=== PATIENT | male | born 1955 | race Caucasian/White ===

== ENCOUNTER → 2016-07-04 | Outpatient (CLI) | payer MEDICARE, OTHER ==
[~2016-07-04] MED LIST: /CLON1TA; /WARF25TA OR; /WARF5TA OR; ACTO15TA OR; ACTO30TA OR; ADVAIR INH; BISO10TA PO; BISO10TA2 OR; CARD120C3 PO; COUM10TA OR; CRES5TAB OR; CYMB60CA3 PO; DIAZIDE PO; DYAZ37.5 OR; FISH300C2 OR; Fish Oil OR; GLUC500T OR; LEVA500T PO; LISI-542 PO; METF1000 PO; METF500T4 OR; Morphine IR; NITR0.4S SL; NITR4TASL SL; OXYC1TAB16 PO; OXYC1TAB23 PO; OXYC40TA12 PO; OXYC40TA19 OR; OXYCODONE; PREG100CA OR; PRO-AIR HFA; ROSU10TA PO; SKEL800T5; SKEL800T5 OR; TRIA37.53 PO; XARE20TA PO; ZANA4TAB PO; ZOLO100T OR; ZOLO50TA OR; [UNRECOGNIZED DRUG - CODE] OR; [UNRECOGNIZED DRUG - MIXTURE]; nucynta OR
--- NOTE | 2016-07-04 13:32 | REP ---
LEFT WRIST SERIES: Four views. HISTORY: Left wrist pain after two falls. FINDINGS: Four views of the left wrist demonstrate osteoarthritic spurring mild in degree at the first carpometacarpal articulation. There is a tiny ossicle at the dorsal aspect of the carpus on lateral film. This appears old and well corticated. Bones joints and soft tissues are otherwise unremarkable. No fracture or subluxation is seen. IMPRESSION: No acute bony abnormality. Early osteoarthritis at the first carpometacarpal articulation. Old accessory ossicle dorsally.
== END ==
LOC: M CLY 11:53
PROVIDERS: ATTEND Physician Assistant
DX: M19.032 Primary osteoarthritis, left wrist (principal)
CPT/HCPCS: 73110; G0463

== ENCOUNTER 2016-07-08 11:35 | Emergency (ER) | payer MEDICARE, OTHER ==
[2016-07-08] MEDS ORDERED: BISOPROLOL FUMARATE 5 MG TAB As Ordered ONE (12:09)
[2016-07-08] MEDS ORDERED: METOPROLOL 5 MG/5 ML VIAL As Ordered ONE ×2 (12:13→13:03)
[2016-07-08 12:43] LABS: ANION GAP 12 MEQ/L (8-16); BLOOD UREA NITROGEN 24 MG/DL (7-18); CALCIUM LEVEL 9.9 MG/DL (8.8-10.2); CARBON DIOXIDE LEVEL 27 MEQ/L (21-32); CHLORIDE LEVEL 100 MEQ/L (98-107); CREATININE FOR GFR 1.57 MG/DL (0.70-1.30); FREE T4 1.26 NG/DL (0.76-1.46); GLOMERULAR FILTRATION RATE 47.7 (>49); GLUCOSE, FASTING 201 MG/DL (80-110); POTASSIUM SERUM 3.7 MEQ/L (3.5-5.1); SODIUM LEVEL 139 MEQ/L (136-145)
[2016-07-08 12:52] LABS: MEAN CORPUSCULAR HEMOGLOBIN 31.9 pg (27.0-33.0); MEAN CORPUSCULAR HGB CONC 33.2 g/dl (32.0-36.5); PLATELET COUNT, AUTOMATED 167 k/mm3 (150-450); RED CELL DISTRIBUTION WIDTH 12.6 % (11.5-14.5); WHITE BLOOD COUNT 7.4 K/mm3 (4.0-10.0)
[2016-07-08 14:00] LABS: BANDS 22 % (< 11); EOSINOPHILS 1 % (0-5); POIKILOCYTOSIS 1+
--- NOTE | 2016-07-08 14:13 | REP ---
PORTABLE CHEST X-RAY: AP semi-erect view. HISTORY: Shortness of breath. Comparison chest x-ray is from April 03, 2016. FINDINGS: EKG monitoring electrodes are seen. The lungs are symmetrically aerated and free of infiltrate. The pleural angles are sharp. Heart size is normal. Pulmonary vasculature is not increased. IMPRESSION: No acute disease. Signed by Sung Ding MD 07/08/2016 03:19 P
[2016-07-08] MEDS ORDERED: ACETAMINOPHEN 325 MG TAB As Ordered ONE (15:28)
--- NOTE | 2016-07-08 17:19 | EDDOCDS ---
Nurse's Notes [facility] Name: Saul Crockett Age: 61 yrs Sex: Male : 1955 Arrival Date: 07/08/2016 Time: 11:35 Bed 3 Private MD: Rafael Castro M.D. Diagnosis: Chronic atrial fibrillation-now rate-controlled;Other chest [id number], resolved Presentation: 07/08 11:37 Presenting complaint: EMS states: Chest pressure with SOB starting approx 0830 am. N/V jf3 in between. Call ed EMS approx 1030. EMS states diaphoretic and ashen sotelo in color. A-Fib on monitor. Aspirin was taken [employer]. Suicide/Homicide risk assessment- the patient denies having any suicidal and/or homicidal ideations and does not present with any other emotional, behavioral or mental health complaints. 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 Transition of care: patient was not received from another setting of care. Care prior to arrival: See EMS report. Medications administered prior to arrival: NTG, IV initiated. Saline lock initiated. Glucose check. 181 mg/dl Oxygen administered by EMS. 11:37 Acuity: WARREN Level 2 jf3 11:37 Method Of Arrival: Ambulance jf3 12:00 Adult Sepsis Screening: The patient does not have new or worsening altered mentation. jf3 Patient's respiratory rate is less than 22. Systolic blood pressure is greater than 100. Patient has a qSOFA score of 0- Negative Sepsis Screen. Triage Assessment: 11:40 General: Appears distressed, Behavior is cooperative. Pain: Location: mid-sternal area. jf3 Pain: Pain currently is 5 out of 10 on a pain scale. Pain: Quality of pain is described as pressure. Pt Declines HIV testing. The patient is triaged at the bedside. See Assessment in Nurses Notes section of ED record. Cardiovascular: Chest pain is described as severe, radiates Does not radiate. episodes are intermittent began 0830 today. Respiratory: Airway is patent Respiratory effort is even, unlabored, Respiratory pattern is regular, symmetrical, Reports shortness of breath at rest. Derm: Skin is diaphoretic, Skin is pale. Historical: - Allergies: Augmentin (Upset stomach); Neurontinnightmares; - Home Meds: 1. morphine 30 mg Oral CM24 1 cap twice a day (Last dose: 07/07/2016) 2. Singulair 10 mg Oral tab 1 tab once daily (Last dose: 07/07/2016) 3. Flomax 0.4 mg Oral cp24 1 cap once daily (Last dose: 07/07/2016) 4. prednisone 20 mg Oral tab 2 tabs once daily (Last dose: 07/07/2016) 5. diltiazem HCl 120 mg Oral cpER 1 cap once daily (Last dose: 07/07/2016) 6. Percocet 10-325 mg Oral tab 2 tab twice a day for Pain (Last dose: 07/07/2016) 7. Advair Diskus 250-50 mcg/dose Inhl dsdv 1 puff 2 times per day (Last dose: 07/07/2016) 8. bisoprolol fumarate 10 mg oral tab 1 tab twice a day (Last dose: 07/07/2016) 9. Crestor 10 mg Oral tab 1 tab once daily (Last dose: 07/07/2016) 10. Cymbalta 60 mg Oral cpDR 1 cap once daily (Last dose: 07/07/2016) 11. metformin 1,000 mg Oral tab 1 tab 2 times per day (Last dose: 07/07/2016) 12. Nasonex 50 mcg/actuation Nasal spry 2 sprays once daily (Last dose: 07/07/2016) 13. nitroglycerin 0.4 mg/hr Topical pt24 as needed (Last dose: Unknown) 14. pro air HFA daily (Last dose: 07/07/2016) 15. Xyzal 5 mg oral tab 1 tab once daily (Last dose: 07/07/2016) 16. Zanaflex 4 mg Oral tab 1 tab every 6 hours for Muscle Spasm (Last dose: 07/07/2016) 17. lisinopril 10 mg Oral tab 1 tab once daily (Last dose: 07/07/2016) 18. Fish Oil 300 mg Oral cap daily (Last dose: 07/07/2016) 19. Xarelto 20 mg oral tab 1 tab once daily (Last dose: 07/07/2016) 20. Voltaren Gel 1% Gel 21. lidocaine patch 22. Amitiza 24 mcg oral cap 1 cap 2 times per day (Last dose: 07/07/2016) 23. triamterene-hydrochlorothiazid 37.5-25 mg Oral tab 1 tab once daily (Last dose: 07/08/2016 08:00) - PMHx: "fatty liver:; Atrial Fib; Chronic Back pain; Diabetes - NIDDM: controlled; Hypertension; - PSHx: right knee ortho; lower back surgery; - The history from nurses notes was reviewed: and I agree with what is documented. - Social history: Smoking status: Patient states was never smoker of tobacco. No barriers to communication noted, The patient speaks fluent [place]. - Family history: Not pertinent. - : The pt / caregiver states he / she is on anticoagulants: Xarelto Home medication list is obtained from the patient. - Hospitalizations: : No recent hospitalization is reported. - Exposure Risk Screening:: None identified. - Immunization history:: All immunizations up-to-date. - Social history:: the patient is a non-smoker, the patient does not drink alcohol. Screenin:53 Screening information is obtained from the patient. Fall risk: No risks identified. js13 Assistance ADL's: requires no assistance with activities of daily living. Abuse/DV Screen: The patient / caregiver reports he/she is: not in a situation that causes fear, pain or injury. Nutritional screening: No deficits noted. Advance Directives: There is no active DNR order. home support is adequate. Assessment: 11:53 General: Appears distressed, Behavior is appropriate for age, cooperative. js13 Neurological: Level of Consciousness is awake, alert. Cardiovascular: Rhythm is atrial fibrillation with rapid ventricular response Chest pain is described as Pain is 5 out of 10 on a pain scale. quality is heaviness, pressure, radiates back Chest pain began 0830 this morning. Respiratory: Airway is patent Respiratory effort is even, unlabored, Respiratory pattern is regular, Breath sounds are diminished. GI: Abdomen is obese, Bowel sounds present X 4 quads. Abd is soft and non tender. Derm: Skin is intact, Skin is diaphoretic, Skin is pink, Skin temperature is warm. 13:10 General: Appears in no apparent distress, Behavior is appropriate for age, cooperative. js13 Pain: Denies pain. Neurological: Level of Consciousness is awake, alert. Cardiovascular: Rhythm is atrial fibrillation with rapid ventricular response Chest pain is denied. Respiratory: Airway is patent Respiratory effort is even, unlabored, Respiratory pattern is regular. Derm: Skin is moist, Skin is pink, Skin temperature is warm. 13:36 General: Appears in no apparent distress, Behavior is appropriate for age, cooperative. js13 Pain: Denies pain. Neurological: Level of Consciousness is awake, alert. Cardiovascular: Rhythm is atrial fibrillation Chest pain is denied. Respiratory: Airway is patent Respiratory effort is even, unlabored, Respiratory pattern is regular. Derm: Skin is pink, warm & dry. 14:42 Adult Sepsis Screening: The patient does not have new or worsening altered mentation. js13 Patient's respiratory rate is less than 22. Systolic blood pressure is greater than 100. Patient has a qSOFA score of 0- Negative Sepsis Screen. General: Appears in no apparent distress, comfortable, Behavior is appropriate for age, cooperative. Pain: Denies pain. Neurological: Level of Consciousness is awake, alert. Cardiovascular: Rhythm is atrial fibrillation Chest pain is denied. Respiratory: Airway is patent Respiratory effort is even, unlabored, Respiratory pattern is regular. Derm: Skin is pink, warm & dry. 15:19 General: Appears in no apparent distress, comfortable, Behavior is appropriate for age, js13 cooperative. Pain: Location: head Pain currently is 3 out of 10 on a pain scale. Quality of pain is described as aching. Neurological: Level of Consciousness is awake, alert. Cardiovascular: Rhythm is atrial fibrillation Chest pain is denied. Respiratory: Airway is patent Respiratory effort is even, unlabored, Respiratory pattern is regular, symmetrical. Derm: Skin is pink, warm & dry. 16:00 Adult Sepsis Screening: The patient does not have new or worsening altered mentation. js13 Patient's respiratory rate is less than 22. Systolic blood pressure is greater than 100. Patient has a qSOFA score of 0- Negative Sepsis Screen. General: Appears in no apparent distress, comfortable, Behavior is appropriate for age, cooperative. Neurological: Level of Consciousness is awake, alert. Cardiovascular: Rhythm is atrial fibrillation Chest pain is denied. Respiratory: Airway is patent Respiratory effort is even, unlabored, Respiratory pattern is regular, symmetrical. Derm: Skin is pink, warm & dry. 16:25 General: Appears in no apparent distress, Behavior is appropriate for age, cooperative. js13 Pain: Location: head Pain currently is 4 out of 10 on a pain scale. Neurological: Level of Consciousness is awake, alert. Cardiovascular: Rhythm is atrial fibrillation Chest pain is denied. Respiratory: Airway is patent Respiratory effort is even, unlabored, Respiratory pattern is regular, symmetrical. Derm: Skin is pink, warm & dry. 16:47 General: Appears in no apparent distress, Behavior is appropriate for age, cooperative. js13 Pain: Pain currently is 4 out of 10 on a pain scale. Neurological: Level of Consciousness is awake, alert. Cardiovascular: Rhythm is atrial fibrillation Chest pain is denied. Respiratory: Airway is patent Respiratory effort is even, unlabored, Respiratory pattern is regular, symmetrical. Derm: Skin is pink, warm & dry. Vital Signs: 11:40 BP 136 / 76; Pulse 145; Resp 24; Temp 100.6(O); Pulse Ox 98% on 4 lpm NC; Weight 121.4 jf3 kg (M); Height 6 ft. 0 in. (182.88 cm); Pain 5/10; 11:51 BP 125 / 84 (auto/); js13 11:51 Pulse 152 MON; Resp 18; Pulse Ox 99% on 4 lpm NC; js13 11:53 BP 169 / 85 (auto/); js13 11:53 Pulse 153 MON; Resp 18; Pulse Ox 99% on 4 lpm NC; js13 12:00 BP 138 / 82 (auto/); js13 12:00 Pulse 146 MON; Resp 16; Pulse Ox 97% on 4 lpm NC; js13 12:07 BP 157 / 91 (auto/); js13 12:07 Pulse 149 MON; Resp 16; Pulse Ox 98% on 4 lpm NC; js13 12:20 BP 154 / 76 (auto/); js13 12:20 Pulse 134 MON; Resp 18; Pulse Ox 98% on 4 lpm NC; js13 12:20 BP 154 / 76; Pulse 134; js13 12:25 BP 142 / 73 (auto/); js13 12:25 Pulse 133 MON; Resp 18; Pulse Ox 98% on 4 lpm NC; js13 12:26 BP 142 / 73; Pulse 149; js13 12:30 BP 141 / 78 (auto/); js13 12:30 Pulse 131 MON; Resp 18; Pulse Ox 98% on 4 lpm NC; js13 12:30 BP 141 / 78; Pulse 126; js13 12:35 BP 118 / 74 (auto/); js13 12:35 Pulse 128 MON; Resp 18; Pulse Ox 99% on 4 lpm NC; js13 12:40 BP 138 / 76 (auto/); js13 12:40 Pulse 129 MON; Resp 16; Pulse Ox 97% on 4 lpm NC; js13 12:43 Temp 98.4(O); js13 12:45 BP 140 / 85 (auto/); js13 12:46 Pulse 136 MON; Resp 16; Pulse Ox 95% on 4 lpm NC; js13 12:50 BP 146 / 81 (auto/); js13 12:50 Pulse 129 MON; Resp 16; Pulse Ox 97% on 4 lpm NC; js13 12:55 BP 147 / 88 (auto/); js13 12:55 Pulse 129 MON; Resp 16; Pulse Ox 97% on 4 lpm NC; js13 13:00 BP 148 / 92 (auto/); js13 13:00 Pulse 128 MON; Resp 16; Pulse Ox 97% on 4 lpm NC; js13 13:05 BP 130 / 70 (auto/); js13 13:05 Pulse 126 MON; Resp 16; Pulse Ox 97% on 4 lpm NC; js13 13:10 BP 124 / 74 (auto/); js13 13:10 Pulse 127 MON; Resp 16; Pulse Ox 98% on 4 lpm NC; js13 13:10 BP 124 / 74; Pulse 124; js13 13:15 BP 116 / 76 (auto/); js13 13:15 Pulse 121 MON; Resp 16; Pulse Ox 96% on 4 lpm NC; js13 13:15 BP 116 / 76; Pulse 114; js13 13:20 BP 121 / 72 (auto/); js13 13:20 Pulse 120 MON; Resp 16; Pulse Ox 96% on 4 lpm NC; js13 13:20 BP 121 / 72; Pulse 121; js13 13:25 BP 127 / 79 (auto/); js13 13:25 Pulse 114 MON; Resp 18; Pulse Ox 96% on 4 lpm NC; js13 13:30 BP 127 / 64 (auto/); js13 13:30 Pulse 111 MON; Resp 16; Pulse Ox 97% on 4 lpm NC; js13 13:35 BP 138 / 83 (auto/); js13 13:35 Pulse 101 MON; Resp 16; Pulse Ox 97% on 4 lpm NC; js13 13:40 BP 143 / 64 (auto/); js13 13:40 Pulse 98 MON; Resp 16; Pulse Ox 97% on 4 lpm NC; js13 13:45 BP 143 / 65 (auto/); js13 13:45 Pulse 98 MON; Resp 16; Pulse Ox 97% on 4 lpm NC; js13 13:50 BP 130 / 72 (auto/); js13 13:50 Pulse 99 MON; Resp 18; Pulse Ox 99% on 4 lpm NC; js13 13:55 BP 125 / 71 (auto/); js13 13:55 Pulse 92 MON; Resp 16; Pulse Ox 97% on 4 lpm NC; js13 14:00 BP 125 / 72 (auto/); js13 14:00 Pulse 95 MON; Resp 16; Pulse Ox 97% on 4 lpm NC; js13 14:05 BP 116 / 65 (auto/); js13 14:05 Pulse 94 MON; Resp 18; Pulse Ox 97% on 4 lpm NC; js13 14:10 BP 124 / 62 (auto/); js13 14:10 Pulse 91 MON; Resp 18; Pulse Ox 97% on 4 lpm NC; js13 14:15 BP 110 / 56 (auto/); js13 14:15 Pulse 87 MON; Resp 18; Pulse Ox 98% on 4 lpm NC; js13 14:20 BP 120 / 72 (auto/); js13 14:20 Pulse 84 MON; Resp 16; Pulse Ox 97% on 4 lpm NC; js13 14:25 BP 123 / 76 (auto/); js13 14:25 Pulse 81 MON; Resp 16; Pulse Ox 98% on 4 lpm NC; js13 14:30 BP 100 / 51 (auto/); js13 14:30 Pulse 80 MON; Resp 16; Pulse Ox 97% on 4 lpm NC; js13 14:35 BP 123 / 77 (auto/); js13 14:35 Pulse 77 MON; Resp 16; Pulse Ox 97% on 4 lpm NC; js13 14:40 BP 98 / 46 (auto/); js13 14:40 Pulse 75 MON; Resp 16; Pulse Ox 97% on 4 lpm NC; js13 14:45 BP 102 / 56 (auto/); js13 14:45 Pulse 76 MON; Resp 16; Pulse Ox 98% on 4 lpm NC; js13 14:50 BP 104 / 56 (auto/); js13 14:50 Pulse 75 MON; Resp 18; Pulse Ox 97% on 4 lpm NC; js13 14:55 BP 119 / 73 (auto/); js13 14:55 Pulse 78 MON; Resp 18; Pulse Ox 98% on 4 lpm NC; js13 15:00 BP 107 / 58 (auto/); js13 15:00 Pulse 75 MON; Resp 16; Pulse Ox 98% on 4 lpm NC; js13 15:05 BP 106 / 50 (auto/); js13 15:05 Pulse 74 MON; Resp 18; Pulse Ox 97% on 4 lpm NC; js13 15:10 BP 93 / 52 (auto/); js13 15:10 Pulse 74 MON; Resp 16; Pulse Ox 100% on 4 lpm NC; js13 15:15 BP 87 / 50 (auto/); js13 15:15 Pulse 72 MON; Resp 16; Pulse Ox 98% on 4 lpm NC; js13 15:20 BP 130 / 87 (auto/); lf1 15:20 Pulse 78 MON; Resp 16; Pulse Ox 98% on 4 lpm NC; lf1 15:25 BP 101 / 70 (auto/); js13 15:25 Pulse 78 MON; Resp 16; Pulse Ox 100% on 4 lpm NC; js13 15:30 BP 111 / 54 (auto/); js13 15:30 Pulse 74 MON; Resp 16; Pulse Ox 98% on 4 lpm NC; js13 15:35 BP 107 / 59 (auto/); js13 15:35 Pulse 70 MON; Resp 18; Pulse Ox 99% on 4 lpm NC; js13 15:40 BP 106 / 60 (auto/); js13 15:40 Pulse 74 MON; Resp 18; Pulse Ox 98% on 4 lpm NC; js13 15:45 BP 102 / 54 (auto/); js13 15:45 Pulse 72 MON; Resp 16; Pulse Ox 98% on 4 lpm NC; js13 15:50 BP 104 / 56 (auto/); js13 15:50 Pulse 73 MON; Resp 16; Pulse Ox 98% on 4 lpm NC; js13 15:55 BP 106 / 57 (auto/); js13 15:55 Pulse 69 MON; Resp 16; Pulse Ox 97% on 4 lpm NC; js13 16:05 BP 128 / 74 (auto/); js13 16:05 Pulse 71 MON; Resp 16; Pulse Ox 100% on 4 lpm NC; js13 16:15 BP 114 / 70 (auto/); js13 16:15 Pulse 72 MON; Resp 16; Pulse Ox 98% on 4 lpm NC; js13 16:30 BP 126 / 81 (auto/); js13 16:30 Pulse 71 MON; Resp 16; Temp 98.7(O); Pulse Ox 98% on 4 lpm NC; js13 16:45 Pulse 71 MON; Pulse Ox 99% ; js13 16:45 BP 141 / 80 (auto/); js13 16:50 Pain 4/10; js13 17:00 BP 139 / 88 (auto/); js13 17:00 Pulse 76 MON; Resp 16; Pulse Ox 97% on R/A; js13 11:40 Body Mass Index 36.30 (121.40 kg, 182.88 cm) 3 Vitals: 11:40 Log In Time N/A - ambulance arrival. 3 ED Course: 11:36 Patient visited by Ria Franco PCA. jlf 11:36 Rafael Castro is Private Physician. [facility] 11:36 Patient moved to Waiting [facility] 11:36 Patient moved to 3 [facility] 11:40 Triage Initiated 3 11:53 The patient / caregiver is instructed regarding the plan of care and ED course. 13 11:53 EKG done. (by ED staff). Reviewed by Serjio Dumas MD. ct3 11:53 Inserted saline lock: 18 gauge in left antecubital area and blood collected. The js13 patient tolerated the procedure well. 11:54 Patient visited by Rajwinder Thao PCA. ct3 11:54 Patient has correct armband on for positive identification. Placed in gown. Call light ct3 in reach. Side rails up X2. quality assurance monitor chassis on. Pulse ox on. NIBP on. 11:56 Patient visited by Yasmin Sood RN. js13 11:56 Inserted saline lock: 16 gauge in right antecubital area The patient tolerated the js13 procedure well. 11:56 Maintain field IV. Dressing intact. Good blood return noted. Site clean & dry. Gauge & js13 site: 20 gauge in right forearm . No procedures done that require assistance. Labs drawn. (by ED staff). Sent per order to lab. Labs/Blood culture drawn. O2 via nasal cannula \\T\\ 4L/min. 11:59 Serjio Dumas MD is Attending Physician. pc 12:05 Patient visited by Serjio Dumas MD. pc 12:12 -Blood Culture Sent. js13 12:12 TSH with Free T4 Sent. js13 12:12 B-Type Natiuretic Peptide Sent. js13 12:12 Basic Metabolic Profile Sent. js13 12:12 CBC with Diff Sent. js13 12:12 Cardiac Injury Profile Sent. js13 12:12 Troponin Sent. js13 12:22 -Influenza A&B Rapid Antigen - Nose Sent. js13 12:41 Patient visited by Rajwinder Thao PCA. ct3 13:00 DIFFERENTIAL NO CHARGE Sent. js13 13:13 [facility] Payment Agreement was scanned into [employer] and attached to record. jp5 13:21 Patient visited by Yasmin Sood RN. js13 13:37 Patient visited by Yasmin Sood RN. js13 13:37 Yasmin Sood RN is Primary Nurse. js13 14:16 portable chest Returned. EDMS 14:33 Patient visited by Rajwinder Thao PCA. ct3 14:33 EKG done. (by ED staff). Reviewed by Serjio Dumas MD. ct3 14:41 CARDIAC MARKER PANEL Sent. js13 14:43 Patient visited by Yasmin Sood,AMNA. js13 15:21 Patient visited by Yasmin Sood,AMNA. js13 15:36 portable chest Returned. EDMS 16:01 Patient visited by Yasmin Sood RN. js13 16:26 Patient visited by Yasmin Sood,AMNA. js13 16:42 Thea Flynn is Referral Physician. pc 17:17 Discontinued IV lock intact, bleeding controlled, pressure dressing applied, No js13 redness/swelling at site. coban dressings applied to all 3 IV sites with 2 X 2 gauze. Administered Medications: 12:12 Drug: Bisoprolol 10 mg [bisoprolol fumarate 5 mg tablet (2 tabs)] Route: PO; js13 12:15 Drug: Metoprolol 5 mg [metoprolol 5 mg/5 mL intravenous solution (5 mL)] Route: IVP; js13 Site: left antecubital; 12:20 Drug: Metoprolol 5 mg [metoprolol 5 mg/5 mL intravenous solution (5 mL)] Route: IVP; js13 Site: left antecubital; 12:20 Follow up: BP 154 / 76; Pulse 134 bpm; Response: Cardiac Rhythm is unchanged; HR not js13 changed 12:25 Drug: Metoprolol 5 mg [metoprolol 5 mg/5 mL intravenous solution (5 mL)] Route: IVP; js13 Site: left antecubital; 12:26 Follow up: BP 142 / 73; Pulse 149 bpm; HR unchanged js13 12:30 Follow up: BP 141 / 78; Pulse 126 bpm; Response: No significant change. js13 12:41 Drug: Cardizem - Diltiazem 120 mg [diltiazem 30 mg tablet (4 tabs)] Route: PO; js13 14:41 Follow up: Response: HR decreased to under 100 js13 13:05 Drug: Metoprolol 5 mg [metoprolol 5 mg/5 mL intravenous solution (5 mL)] Route: IVP; js13 Site: left antecubital; 13:10 Drug: Metoprolol 5 mg [metoprolol 5 mg/5 mL intravenous solution (5 mL)] Route: IVP; js13 Site: left antecubital; 13:10 Follow up: BP 124 / 74; Pulse 124 bpm; Response: No significant change. js13 13:15 Drug: Metoprolol 5 mg [metoprolol 5 mg/5 mL intravenous solution (5 mL)] Route: IVP; js13 Site: left antecubital; 13:15 Follow up: BP 116 / 76; Pulse 114 bpm; Response: HR decreased 114 BPM js13 13:20 Follow up: BP 121 / 72; Pulse 121 bpm; Response: No significant change. js13 15:32 Drug: Acetaminophen 650 mg [acetaminophen 325 mg tablet (2 tabs)] Route: PO; lf1 16:50 Follow up: Pain 4/10 Adult; Response: Pain is decreased js13 Intake: Order Results: Lab Order: B-Type Natiuretic Peptide; SPEC'M 07/08/16 11:40 Test: BRAIN NATRIURETIC PEPTIDE; Value: 173; Range: <100; Abnormal: Above high normal; Units: PG/ML; Status: F Lab Order: Basic Metabolic Profile; SPEC'M 07/08/16 11:40 Test: GLUCOSE, FASTING; Value: 201; Range: 80-110; Abnormal: Above high normal; Units: MG/DL; Status: F Test: BLOOD UREA NITROGEN; Value: 24; Range: 7-18; Abnormal: Above high normal; Units: MG/DL; Status: F Test: CREATININE FOR GFR; Value: 1.57; Range: 0.70-1.30; Abnormal: Above high normal; Units: MG/DL; Status: F Test: GLOMERULAR FILTRATION RATE; Value: 47.7; Range: >49; Abnormal: Below low normal; Status: F Test: SODIUM LEVEL; Value: 139; Range: 136-145; Units: MEQ/L; Status: F Test: POTASSIUM SERUM; Value: 3.7; Range: 3.5-5.1; Units: MEQ/L; Status: F Test: CHLORIDE LEVEL; Value: 100; Range: 98-107; Units: MEQ/L; Status: F Test: CARBON DIOXIDE LEVEL; Value: 27; Range: 21-32; Units: MEQ/L; Status: F Test: ANION GAP; Value: 12; Range: 8-16; Units: MEQ/L; Status: F Test: CALCIUM LEVEL; Value: 9.9; Range: 8.8-10.2; Units: MG/DL; Status: F Test Note: ; Units are mL/min/1.73 m2 Chronic Kidney Disease Staging per NKF: Stage I & II GFR >=60 Normal to Mildly Decreased Stage III GFR 30-59 Moderately Decreased Stage IV GFR 15-29 Severely Decreased Stage V GFR <15 Very Little GFR Left ESRD GFR <15 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 Lab Order: CBC with Diff; SPEC'M 07/08/16 11:40 Test: WHITE BLOOD COUNT; Value: 7.4; Range: 4.0-10.0; Units: K/mm3; Status: F Test: RED BLOOD COUNT; Value: 4.69; Range: 4.30-6.10; Units: M/mm3; Status: F Test: HEMOGLOBIN; Value: 15.0; Range: 14.0-18.0; Units: g/dl; Status: F Test: HEMATOCRIT; Value: 45.1; Range: 42.0-52.0; Units: %; Status: F Test: MEAN CORPUSCULAR VOLUME; Value: 96.0; Range: 80.0-96.0; Units: fl; Status: F Test: MEAN CORPUSCULAR HEMOGLOBIN; Value: 31.9; Range: 27.0-33.0; Units: pg; Status: F Test: MEAN CORPUSCULAR HGB CONC; Value: 33.2; Range: 32.0-36.5; Units: g/dl; Status: F Test: RED CELL DISTRIBUTION WIDTH; Value: 12.6; Range: 11.5-14.5; Units: %; Status: F Test: PLATELET COUNT, AUTOMATED; Value: 167; Range: 150-450; Units: k/mm3; Status: F Test: NEUTROPHILS; Value: 72; Range: 35-75; Units: %; Status: F Test: BANDS; Value: 22; Range: < 11; Abnormal: Above high normal; Units: %; Status: F Test: LYMPHOCYTES; Value: 3; Range: 16-52; Abnormal: Below low normal; Units: %; Status: F Test: MONOCYTES; Value: 2; Range: 0-8; Units: %; Status: F Test: EOSINOPHILS; Value: 1; Range: 0-5; Units: %; Status: F Test: POIKILOCYTOSIS; Value: 1+; Status: F Lab Order: Cardiac Injury Profile; [facility]' 07/08/16 11:40 Test: CPK CREATINE PHOSPHOKINASE; Value: 31; Range: 39-308; Abnormal: Below low normal; Units: U/L; Status: F Test: CK-MB VALUE MASS; Value: 1.0; Range: 0.0-3.6; Units: NG/ML; Status: F Test: MB/CK RELATIVE INDEX; Value: 3.22; Range: < OR =4; Status: F Test Note: ; DIAGNOSIS CRITERIA MMB ng/ml Relative Index (RI) NON-AMI < or = 5 N/A SOTELO ZONE > 5 < or = 4 AMI > 5 > 4 Lab Order: Troponin; SPEC'M 07/08/16 11:40 Test: TROPONIN I; Value: < 0.02; Range: < 0.10; Units: NG/ML; Status: F Test Note: ; Troponin I Reference Interval for Siemens MVB Bank, LOCI: 99th Percentile= 0.00-0.045 ng/ml Risk Stratification: <= 0.10 ng/ml Decreased Risk for Adverse Clinical Events. 0.10-1.50 ng/ml Increased Risk for Adverse Clinical Events. Evaluation of additional criterion and/or repeat testing in 2-6 hours is suggested to rule out myocardial damage. >= 1.50 ng/ml Indicative of Myocardial Injury. Lab Order: TSH with Free T4; SPEC'M 07/08/16 11:40 Test: THYROID STIMULATING HORMONE; Value: 1.680; Range: 0.358-3.740; Units: uIU/ML; Status: F Test: FREE T4; Value: 1.26; Range: 0.76-1.46; Units: NG/DL; Status: F Lab Order: -Influenza A&B Rapid Antigen - Nose; SPEC'M 07/08/16 12:15 Test: INFLUENZA A RAPID SCR by ICA; Value: INFLUENZA A RESULTS NEGATIVE; Status: F Test: INFLUENZA A RAPID SCR by ICA; Value: Comments:; Status: F Test: INFLUENZA B RAPID SCR by ICA; Value: INFLUENZA B RESULTS NEGATIVE; Status: F Test Note: ; The Influenza test is a direct rapid immunoassay for the qualitative detection of Influenza viral antigen. Cell culture (Viral Culture) testing should be considered to confirm NEGATIVE results and to assist in detecting other viruses that can provide similar clinical symptoms. Please contact the lab within 24 hours ([phone] if confirmatory testing is desired. Lab Order: PLATELET ESTIMATE; SPEC'M 07/08/16 11:40 Test: PLATELET ESTIMATE; Value: NORMAL; Range: NORMAL; Status: F Lab Order: CARDIAC MARKER PANEL; SPEC'M 07/08/16 14:38 Test: CPK CREATINE PHOSPHOKINASE; Value: 35; Range: 39-308; Abnormal: Below low normal; Units: U/L; Status: F Test: CK-MB VALUE MASS; Value: 1.0; Range: 0.0-3.6; Units: NG/ML; Status: F Test: MB/CK RELATIVE INDEX; Value: 2.85; Range: < OR =4; Status: F Test: TROPONIN I; Value: < 0.02; Range: < 0.10; Units: NG/ML; Status: F Test Note: ; DIAGNOSIS CRITERIA MMB ng/ml Relative Index (RI) NON-AMI < or = 5 N/A SOTELO ZONE > 5 < or = 4 AMI > 5 > 4 Radiology Order: portable chest Test: portable chest REASON FOR EXAMINATION: Shortness of Breath; PORTABLE CHEST X-RAY: AP semi-erect view.; ; HISTORY: Shortness of breath.; ; Comparison chest x-ray is from April 03, 2016.; ; FINDINGS: EKG monitoring electrodes are seen. The lungs are symmetrically; aerated and free of infiltrate. The pleural angles are sharp. Heart size is; normal. Pulmonary vasculature is not increased.; ; IMPRESSION: No acute disease.; ; ; Signed by; Sung Ding MD 07/08/2016 03:19 P; Outcome: 16:42 Discharge ordered by Provider. pc 17:16 Discharge Assessment: Patient awake, alert and oriented x 3. No cognitive and/or js13 functional deficits noted. Patient verbalized understanding of disposition instructions. patient administered narcotics - no. The following High Risk Discharge criteria are identified: None. Discharged to home ambulatory, with family, with significant other. Condition: stable. Discharge instructions given to patient, significant other, Instructed on discharge instructions, follow up and referral plans. medication usage, Demonstrated understanding of instructions, medications, Pt was receptive of discharge instructions/ teaching. Prescriptions given X 1. No special radiology studies were completed. Property :Personal belongings accompany Pt. 17:18 Patient left the ED. js13 Signatures: Dispatcher [employer] EDMS Serjio Dumas MD MD pc Ford, Lisa, RN RN lf1 Rajwinder Thao, BOARD OF EDUCATION SECRETARY BOARD OF EDUCATION SECRETARY ct3 Yasmin Sood RN RN js13 Ria Franco, BOARD OF EDUCATION SECRETARY BOARD OF EDUCATION SECRETARY jlf Sasha Mustafa jp5 Jc Jimenez,RN RN jf3 Corrections: (The following items were deleted from the chart) 13:20 11:57 Home Meds: triamterene-hydrochlorothiazid 37.5-25 mg Oral tab 1 tab once daily js13 (Last Dose: 07/07/2016); jf3 15:27 15:20 Pulse 78bpm; Monitor; Pulse Ox 98%; lf1 lf1 16:50 16:45 BP 141 / 100 Auto; js13 js13 MTDD
--- NOTE | 2016-07-08 17:19 | EDDOCDS ---
Physician Documentation [facility] Name: Saul Crockett Age: 61 yrs Sex: Male : 1955 Arrival Date: 07/08/2016 Time: 11:35 Bed 3 Private MD: Rafael Castro M.D. Disposition: 07/08 16:37 Critical Care:. pc Disposition: 07/08/16 16:42 Discharged to Home/Self Care. Impression: Chronic atrial fibrillation - now rate-controlled, Other chest pain - rate-related, resolved. - Condition is Stable. - Discharge Instructions: Atrial Fibrillation. - Prescriptions for diltiazem HCl 180 mg Oral capsule, extended release - take 1 capsule by ORAL route once daily; 30 capsule. - Medication Reconciliation, Local Pharmacy Hours form. - Follow up: Thea Flynn; When: Call to arrange an appointment; Reason: Recheck today's complaints, Continuance of care. - Problem is an acute exacerbation. - Symptoms are resolved. HPI: 13:58 This 61 yrs old Male presents to ER via Ambulance with complaints of Chest pc Pressure, Breathing Difficulty. 13:58 The history is obtained from the patient. Symptoms began suddenly at 08:30. Symptoms pc have resolved. They lasted for. Symptoms occurred while at rest. At its worst, the symptoms were a 7 out of 10. In the emergency department, the symptoms are a 2 out of 10. The chest pain is described as a pressure. It is located primarily in the substernal area. The pain does not radiate. The chest pain was associated with sweating, shortness of breath. The patient has experienced similar episodes in the past, several times. The patient has been recently seen by their primary care provider, for a routine, regularly scheduled appointment. He has no sense of his heart rate being fast but is at 140bpm on his monitor. Historical: - Allergies: Augmentin (Upset stomach); Neurontinnightmares; - Home Meds: 1. morphine 30 mg Oral CM24 1 cap twice a day (Last dose: 07/07/2016) 2. Singulair 10 mg Oral tab 1 tab once daily (Last dose: 07/07/2016) 3. Flomax 0.4 mg Oral cp24 1 cap once daily (Last dose: 07/07/2016) 4. prednisone 20 mg Oral tab 2 tabs once daily (Last dose: 07/07/2016) 5. diltiazem HCl 120 mg Oral cpER 1 cap once daily (Last dose: 07/07/2016) 6. Percocet 10-325 mg Oral tab 2 tab twice a day for Pain (Last dose: 07/07/2016) 7. Advair Diskus 250-50 mcg/dose Inhl dsdv 1 puff 2 times per day (Last dose: 07/07/2016) 8. bisoprolol fumarate 10 mg oral tab 1 tab twice a day (Last dose: 07/07/2016) 9. Crestor 10 mg Oral tab 1 tab once daily (Last dose: 07/07/2016) 10. Cymbalta 60 mg Oral cpDR 1 cap once daily (Last dose: 07/07/2016) 11. metformin 1,000 mg Oral tab 1 tab 2 times per day (Last dose: 07/07/2016) 12. Nasonex 50 mcg/actuation Nasal spry 2 sprays once daily (Last dose: 07/07/2016) 13. nitroglycerin 0.4 mg/hr Topical pt24 as needed (Last dose: Unknown) 14. pro air HFA daily (Last dose: 07/07/2016) 15. Xyzal 5 mg oral tab 1 tab once daily (Last dose: 07/07/2016) 16. Zanaflex 4 mg Oral tab 1 tab every 6 hours for Muscle Spasm (Last dose: 07/07/2016) 17. lisinopril 10 mg Oral tab 1 tab once daily (Last dose: 07/07/2016) 18. Fish Oil 300 mg Oral cap daily (Last dose: 07/07/2016) 19. Xarelto 20 mg oral tab 1 tab once daily (Last dose: 07/07/2016) 20. Voltaren Gel 1% Gel 21. lidocaine patch 22. Amitiza 24 mcg oral cap 1 cap 2 times per day (Last dose: 07/07/2016) 23. triamterene-hydrochlorothiazid 37.5-25 mg Oral tab 1 tab once daily (Last dose: 07/08/2016 08:00) - PMHx: "fatty liver:; Atrial Fib; Chronic Back pain; Diabetes - NIDDM: controlled; Hypertension; - PSHx: right knee ortho; lower back surgery; - The history from nurses notes was reviewed: and I agree with what is documented. - Social history: Smoking status: Patient states was never smoker of tobacco. No barriers to communication noted, The patient speaks fluent Jamaican. - Family history: Not pertinent. - : The pt / caregiver states he / she is on anticoagulants: Xarelto Home medication list is obtained from the patient. - Hospitalizations: : No recent hospitalization is reported. - Exposure Risk Screening:: None identified. - Immunization history:: All immunizations up-to-date. - Social history:: the patient is a non-smoker, the patient does not drink alcohol. ROS: 13:58 All systems are negative except as listed. The cardiovascular, respiratory, pc gastrointestinal and neurological components are also addressed in the HPI. Exam: 13:58 General Appearance: alert, mild distress. pc 13:58 ENT: ear, nose and throat normal, pharynx normal. 13:58 Neck: supple, non-tender, no masses are appreciated. 13:58 Respiratory: no respiratory distress, normal breath sounds, chest non-tender. 13:58 Cardiovascular: normal heart sounds, equal and full pulses bilaterally, tachycardia, 154bpm, Rhythm is irregularly irregular. 13:58 Abdomen: soft, non-tender, no organomegaly, normal bowel sounds. 13:58 Skin: skin color is normal, warm, diaphoretic. 13:58 Extremities: The extremities have a grossly normal appearance, are non-tender, without acute ROM abnormalities, no pedal edema. 13:58 Neuro: alert, oriented to person, place and time, cranial nerves normal as tested, no motor deficits, no sensory deficits. 13:58 Psych: normal mood. Vital Signs: 11:40 BP 136 / 76; Pulse 145; Resp 24; Temp 100.6(O); Pulse Ox 98% on 4 lpm NC; Weight 121.4 jf3 kg / 267.64 lbs (M); Height 6 ft. 0 in. (182.88 cm); Pain 5/10; 11:51 BP 125 / 84 (auto/); js13 11:51 Pulse 152 MON; Resp 18; Pulse Ox 99% on 4 lpm NC; js13 11:53 BP 169 / 85 (auto/); js13 11:53 Pulse 153 MON; Resp 18; Pulse Ox 99% on 4 lpm NC; js13 12:00 BP 138 / 82 (auto/); js13 12:00 Pulse 146 MON; Resp 16; Pulse Ox 97% on 4 lpm NC; js13 12:07 BP 157 / 91 (auto/); js13 12:07 Pulse 149 MON; Resp 16; Pulse Ox 98% on 4 lpm NC; js13 12:20 BP 154 / 76 (auto/); js13 12:20 Pulse 134 MON; Resp 18; Pulse Ox 98% on 4 lpm NC; js13 12:20 BP 154 / 76; Pulse 134; js13 12:25 BP 142 / 73 (auto/); js13 12:25 Pulse 133 MON; Resp 18; Pulse Ox 98% on 4 lpm NC; js13 12:26 BP 142 / 73; Pulse 149; js13 12:30 BP 141 / 78 (auto/); js13 12:30 Pulse 131 MON; Resp 18; Pulse Ox 98% on 4 lpm NC; js13 12:30 BP 141 / 78; Pulse 126; js13 12:35 BP 118 / 74 (auto/); js13 12:35 Pulse 128 MON; Resp 18; Pulse Ox 99% on 4 lpm NC; js13 12:40 BP 138 / 76 (auto/); js13 12:40 Pulse 129 MON; Resp 16; Pulse Ox 97% on 4 lpm NC; js13 12:43 Temp 98.4(O); js13 12:45 BP 140 / 85 (auto/); js13 12:46 Pulse 136 MON; Resp 16; Pulse Ox 95% on 4 lpm NC; js13 12:50 BP 146 / 81 (auto/); js13 12:50 Pulse 129 MON; Resp 16; Pulse Ox 97% on 4 lpm NC; js13 12:55 BP 147 / 88 (auto/); js13 12:55 Pulse 129 MON; Resp 16; Pulse Ox 97% on 4 lpm NC; js13 13:00 BP 148 / 92 (auto/); js13 13:00 Pulse 128 MON; Resp 16; Pulse Ox 97% on 4 lpm NC; js13 13:05 BP 130 / 70 (auto/); js13 13:05 Pulse 126 MON; Resp 16; Pulse Ox 97% on 4 lpm NC; js13 13:10 BP 124 / 74 (auto/); js13 13:10 Pulse 127 MON; Resp 16; Pulse Ox 98% on 4 lpm NC; js13 13:10 BP 124 / 74; Pulse 124; js13 13:15 BP 116 / 76 (auto/); js13 13:15 Pulse 121 MON; Resp 16; Pulse Ox 96% on 4 lpm NC; js13 13:15 BP 116 / 76; Pulse 114; js13 13:20 BP 121 / 72 (auto/); js13 13:20 Pulse 120 MON; Resp 16; Pulse Ox 96% on 4 lpm NC; js13 13:20 BP 121 / 72; Pulse 121; js13 13:25 BP 127 / 79 (auto/); js13 13:25 Pulse 114 MON; Resp 18; Pulse Ox 96% on 4 lpm NC; js13 13:30 BP 127 / 64 (auto/); js13 13:30 Pulse 111 MON; Resp 16; Pulse Ox 97% on 4 lpm NC; js13 13:35 BP 138 / 83 (auto/); js13 13:35 Pulse 101 MON; Resp 16; Pulse Ox 97% on 4 lpm NC; js13 13:40 BP 143 / 64 (auto/); js13 13:40 Pulse 98 MON; Resp 16; Pulse Ox 97% on 4 lpm NC; js13 13:45 BP 143 / 65 (auto/); js13 13:45 Pulse 98 MON; Resp 16; Pulse Ox 97% on 4 lpm NC; js13 13:50 BP 130 / 72 (auto/); js13 13:50 Pulse 99 MON; Resp 18; Pulse Ox 99% on 4 lpm NC; js13 13:55 BP 125 / 71 (auto/); js13 13:55 Pulse 92 MON; Resp 16; Pulse Ox 97% on 4 lpm NC; js13 14:00 BP 125 / 72 (auto/); js13 14:00 Pulse 95 MON; Resp 16; Pulse Ox 97% on 4 lpm NC; js13 14:05 BP 116 / 65 (auto/); js13 14:05 Pulse 94 MON; Resp 18; Pulse Ox 97% on 4 lpm NC; js13 14:10 BP 124 / 62 (auto/); js13 14:10 Pulse 91 MON; Resp 18; Pulse Ox 97% on 4 lpm NC; js13 14:15 BP 110 / 56 (auto/); js13 14:15 Pulse 87 MON; Resp 18; Pulse Ox 98% on 4 lpm NC; js13 14:20 BP 120 / 72 (auto/); js13 14:20 Pulse 84 MON; Resp 16; Pulse Ox 97% on 4 lpm NC; js13 14:25 BP 123 / 76 (auto/); js13 14:25 Pulse 81 MON; Resp 16; Pulse Ox 98% on 4 lpm NC; js13 14:30 BP 100 / 51 (auto/); js13 14:30 Pulse 80 MON; Resp 16; Pulse Ox 97% on 4 lpm NC; js13 14:35 BP 123 / 77 (auto/); js13 14:35 Pulse 77 MON; Resp 16; Pulse Ox 97% on 4 lpm NC; js13 14:40 BP 98 / 46 (auto/); js13 14:40 Pulse 75 MON; Resp 16; Pulse Ox 97% on 4 lpm NC; js13 14:45 BP 102 / 56 (auto/); js13 14:45 Pulse 76 MON; Resp 16; Pulse Ox 98% on 4 lpm NC; js13 14:50 BP 104 / 56 (auto/); js13 14:50 Pulse 75 MON; Resp 18; Pulse Ox 97% on 4 lpm NC; js13 14:55 BP 119 / 73 (auto/); js13 14:55 Pulse 78 MON; Resp 18; Pulse Ox 98% on 4 lpm NC; js13 15:00 BP 107 / 58 (auto/); js13 15:00 Pulse 75 MON; Resp 16; Pulse Ox 98% on 4 lpm NC; js13 15:05 BP 106 / 50 (auto/); js13 15:05 Pulse 74 MON; Resp 18; Pulse Ox 97% on 4 lpm NC; js13 15:10 BP 93 / 52 (auto/); js13 15:10 Pulse 74 MON; Resp 16; Pulse Ox 100% on 4 lpm NC; js13 15:15 BP 87 / 50 (auto/); js13 15:15 Pulse 72 MON; Resp 16; Pulse Ox 98% on 4 lpm NC; js13 15:20 BP 130 / 87 (auto/); lf1 15:20 Pulse 78 MON; Resp 16; Pulse Ox 98% on 4 lpm NC; lf1 15:25 BP 101 / 70 (auto/); js13 15:25 Pulse 78 MON; Resp 16; Pulse Ox 100% on 4 lpm NC; js13 15:30 BP 111 / 54 (auto/); js13 15:30 Pulse 74 MON; Resp 16; Pulse Ox 98% on 4 lpm NC; js13 15:35 BP 107 / 59 (auto/); js13 15:35 Pulse 70 MON; Resp 18; Pulse Ox 99% on 4 lpm NC; js13 15:40 BP 106 / 60 (auto/); js13 15:40 Pulse 74 MON; Resp 18; Pulse Ox 98% on 4 lpm NC; js13 15:45 BP 102 / 54 (auto/); js13 15:45 Pulse 72 MON; Resp 16; Pulse Ox 98% on 4 lpm NC; js13 15:50 BP 104 / 56 (auto/); js13 15:50 Pulse 73 MON; Resp 16; Pulse Ox 98% on 4 lpm NC; js13 15:55 BP 106 / 57 (auto/); js13 15:55 Pulse 69 MON; Resp 16; Pulse Ox 97% on 4 lpm NC; js13 16:05 BP 128 / 74 (auto/); js13 16:05 Pulse 71 MON; Resp 16; Pulse Ox 100% on 4 lpm NC; js13 16:15 BP 114 / 70 (auto/); js13 16:15 Pulse 72 MON; Resp 16; Pulse Ox 98% on 4 lpm NC; js13 16:30 BP 126 / 81 (auto/); js13 16:30 Pulse 71 MON; Resp 16; Temp 98.7(O); Pulse Ox 98% on 4 lpm NC; js13 16:45 Pulse 71 MON; Pulse Ox 99% ; js13 16:45 BP 141 / 80 (auto/); js13 16:50 Pain 4/10; js13 17:00 BP 139 / 88 (auto/); js13 17:00 Pulse 76 MON; Resp 16; Pulse Ox 97% on R/A; js13 11:40 Body Mass Index 36.30 (121.40 kg, 182.88 cm) jf3 MDM: 11:38 ECG WITH READING ER PHYS+CARDIAG ordered. EDMS 12:08 Hat Renovator/Pulse Ox/q 30 min VS ordered. pc 12:08 IV Saline Lock ordered. pc 12:08 Rhythm Strip to chart ordered. pc 12:08 Metoprolol 5 mg IVP every 5 minutes; Hold for SBP < 100 or HR < 60. x3 ordered. pc 12:08 Bisoprolol 10 mg PO once ordered. pc 12:09 B-Type Natiuretic Peptide Ordered. EDMS 12:09 Basic Metabolic Profile Ordered. EDMS 12:09 CBC with Diff Ordered. EDMS 12:09 Cardiac Injury Profile Ordered. EDMS 12:09 Troponin Ordered. EDMS 12:09 TSH with Free T4 Ordered. EDMS 12:09 -Blood Culture (Adults Only), peripheral from different site, or from device/port/PICC pc etc. if present ordered. 12:09 Obtain sample by nasopharyngeal swab ordered. pc 12:10 -Blood Culture Ordered. EDMS 12:10 -Influenza A&B Rapid Antigen - Nose Ordered. EDMS 12:10 portable chest Ordered. EDMS 12:12 -Blood Culture (Adults Only), peripheral from different site, or from device/port/PICC jlf etc. if present complete. 12:14 BLOOD CULTURES Ordered. EDMS 12:41 Cardizem - Diltiazem 120 mg PO once ordered. js13 12:52 B-Type Natiuretic Peptide Reviewed. pc 12:52 Basic Metabolic Profile Reviewed. pc 12:52 Cardiac Injury Profile Reviewed. pc 12:52 Troponin Reviewed. pc 12:52 -Influenza A&B Rapid Antigen - Nose Reviewed. pc 12:53 Metoprolol 5 mg IVP every 5 minutes; Hold for SBP < 100 or HR < 60. x3 ordered. pc 12:54 DIFFERENTIAL NO CHARGE Ordered. EDMS 12:54 PLATELET ESTIMATE Ordered. EDMS 13:13 [facility] Payment Agreement was scanned into [employer] and attached to record. jp5 13:13 Financial registration complete. jp5 13:58 Differential diagnosis: unstable angina, AFib with RVR. Plan: labs, EKG, imaging, meds. pc The patient not medicated with aspirin in the Emergency Department because aspirin was given by EMS prior to arrival. Data reviewed: old medical records, vital signs, nurses notes, EKG(s), lab test results, all radiology studies and available results. Test interpretation: EKG. 14:19 CBC with Diff Reviewed. pc 14:19 PLATELET ESTIMATE Reviewed. pc 14:19 portable chest Reviewed. pc 14:20 Repeat EKG (put time details section) ordered. pc 14:20 Redraw CIP &Troponin (put time in details section) ordered. pc 14:30 Repeat EKG (put time details section) complete. jlf 14:30 Redraw CIP &Troponin (put time in details section) complete. jlf 14:31 ECG WITH READING ER PHYS ordered. EDMS 14:31 CARDIAC MARKER PANEL Ordered. EDMS 14:33 Test interpretation: EKG. pc 15:25 Acetaminophen Tablet 650 mg PO once ordered. pc 15:25 Basic Metabolic Profile Reviewed. pc 15:25 Cardiac Injury Profile Reviewed. pc 15:25 CARDIAC MARKER PANEL Reviewed. pc 15:25 Troponin Reviewed. pc 15:25 TSH with Free T4 Reviewed. pc 15:29 LOW FAT LOW CHOLESTEROL+DIET ordered. EDMS 16:37 Test interpretation: LAB - all labs as ordered have been reviewed, interpreted and pc considered in the overall management of the clinical presentation; X-RAY - interpreted by Radiologist and personally reviewed, 1 view chest no acute disease. The patient has been re-examined and re-evaluated. The patient's symptoms have resolved after treatment, with his chest pain, dyspnea and diaphoresis resolved, and his pulse now 70-85 in rate-controlled AFib. Physician consultation: Dr. Thea Flynn regarding patient's condition, and advises the medications/treatment as provided. and agrees with the treatment provided and advises the discharge plans as outlined. Disposition: The historical points, examination findings, and any diagnostic results supporting the provided diagnosis, were discussed with the patient or legal guardian. The need for outpatient follow up with the provider listed on their discharge instructions was discussed. They were encouraged to return to [facility], or the nearest ED, if symptoms worsen/persist, or for any other questions/concerns. EC:47 Rate is 156 beats/min. Rhythm is irregularly irregular, A fib. QRS [place] is Normal. QRS pc interval is normal. QT interval is normal. No Q waves. ST Segment is depressed in leads II, V2, V3, V4, V5, V6, <1mm. Clinical impression: Nonspecific ST-T changes and Atrial Fibrillation with RVR. No change from previous ECG in March,. 14:33 Rate is 74 beats/min. Rhythm is irregularly irregular, A fib. QRS [place] is Normal. QRS pc interval is normal. QT interval is normal. No Q waves. T waves are Normal. No ST changes noted. Clinical impression: Atrial Fibrillation w/o RVR. Administered Medications: 12:12 Drug: Bisoprolol 10 mg [bisoprolol fumarate 5 mg tablet (2 tabs)] Route: PO; js13 12:15 Drug: Metoprolol 5 mg [metoprolol 5 mg/5 mL intravenous solution (5 mL)] Route: IVP; js13 Site: left antecubital; 12:20 Drug: Metoprolol 5 mg [metoprolol 5 mg/5 mL intravenous solution (5 mL)] Route: IVP; js13 Site: left antecubital; 12:20 Follow up: BP 154 / 76; Pulse 134 bpm; Response: Cardiac Rhythm is unchanged; HR not js13 changed 12:25 Drug: Metoprolol 5 mg [metoprolol 5 mg/5 mL intravenous solution (5 mL)] Route: IVP; js13 Site: left antecubital; 12:26 Follow up: BP 142 / 73; Pulse 149 bpm; HR unchanged js13 12:30 Follow up: BP 141 / 78; Pulse 126 bpm; Response: No significant change. js13 12:41 Drug: Cardizem - Diltiazem 120 mg [diltiazem 30 mg tablet (4 tabs)] Route: PO; js13 14:41 Follow up: Response: HR decreased to under 100 js13 13:05 Drug: Metoprolol 5 mg [metoprolol 5 mg/5 mL intravenous solution (5 mL)] Route: IVP; js13 Site: left antecubital; 13:10 Drug: Metoprolol 5 mg [metoprolol 5 mg/5 mL intravenous solution (5 mL)] Route: IVP; js13 Site: left antecubital; 13:10 Follow up: BP 124 / 74; Pulse 124 bpm; Response: No significant change. js13 13:15 Drug: Metoprolol 5 mg [metoprolol 5 mg/5 mL intravenous solution (5 mL)] Route: IVP; js13 Site: left antecubital; 13:15 Follow up: BP 116 / 76; Pulse 114 bpm; Response: HR decreased 114 BPM js13 13:20 Follow up: BP 121 / 72; Pulse 121 bpm; Response: No significant change. js13 15:32 Drug: Acetaminophen 650 mg [acetaminophen 325 mg tablet (2 tabs)] Route: PO; lf1 16:50 Follow up: Pain /10 Adult; Response: Pain is decreased js13 Critical Care Time: 16:37 Critical care time: Bedside Care: 40 minutes, Consultation: 10 minutes, Family pc Intervention: 10 minutes. Total time: 60 minutes Signatures: Dispatcher [employer] EDMS Serjio Dumas MD MD pc Sullivan, Jennifer,RN RN js13 Ria Franco, SETTLEMENT AGENT SETTLEMENT AGENT Sasha Long jp5 Jc JimenezRN RN jf3 Asiha Muro RN lf1 The chart was reviewed and I authenticate all verbal orders and agree with the evaluation and treatment provided.Corrections: (The following items were deleted from the chart) 13:20 11:57 Home Meds: triamterene-hydrochlorothiazid 37.5-25 mg Oral tab 1 tab once daily js13 (Last Dose: 07/07/2016); jf3 14:20 11:39 ECG WITH READING ER PHYS+CARDIAG ordered. EDMS EDMS Attachments: 13:13 [facility] [place] Payment Agreement jp5 MTDD
--- NOTE | 2016-07-09 20:37 | ECGEPIP ---
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
--- NOTE | 2016-07-09 20:42 | ECGEPIP ---
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
--- NOTE | 2016-07-10 18:19 | EDDOCDS ---
Physician Documentation [facility] Name: Saul Crockett Age: 61 yrs Sex: Male : 1955 Arrival Date: 07/08/2016 Time: 11:35 Bed 3 Private MD: Rafael Castro M.D. Disposition: 07/08 16:37 Critical Care:. pc Disposition: 07/08/16 16:42 Discharged to Home/Self Care. Impression: Chronic atrial fibrillation - now rate-controlled, Other chest pain - rate-related, resolved. - Condition is Stable. - Discharge Instructions: Atrial Fibrillation. - Prescriptions for diltiazem HCl 180 mg Oral capsule, extended release - take 1 capsule by ORAL route once daily; 30 capsule. - Medication Reconciliation, Local Pharmacy Hours form. - Follow up: Thea Flynn; When: Call to arrange an appointment; Reason: Recheck today's complaints, Continuance of care. - Problem is an acute exacerbation. - Symptoms are resolved. HPI: 13:58 This 61 yrs old Male presents to ER via Ambulance with complaints of Chest pc Pressure, Breathing Difficulty. 13:58 The history is obtained from the patient. Symptoms began suddenly at 08:30. Symptoms pc have resolved. They lasted for. Symptoms occurred while at rest. At its worst, the symptoms were a 7 out of 10. In the emergency department, the symptoms are a 2 out of 10. The chest pain is described as a pressure. It is located primarily in the substernal area. The pain does not radiate. The chest pain was associated with sweating, shortness of breath. The patient has experienced similar episodes in the past, several times. The patient has been recently seen by their primary care provider, for a routine, regularly scheduled appointment. He has no sense of his heart rate being fast but is at 140bpm on his monitor. Historical: - Allergies: Augmentin (Upset stomach); Neurontinnightmares; - Home Meds: 1. morphine 30 mg Oral CM24 1 cap twice a day (Last dose: 07/07/2016) 2. Singulair 10 mg Oral tab 1 tab once daily (Last dose: 07/07/2016) 3. Flomax 0.4 mg Oral cp24 1 cap once daily (Last dose: 07/07/2016) 4. prednisone 20 mg Oral tab 2 tabs once daily (Last dose: 07/07/2016) 5. diltiazem HCl 120 mg Oral cpER 1 cap once daily (Last dose: 07/07/2016) 6. Percocet 10-325 mg Oral tab 2 tab twice a day for Pain (Last dose: 07/07/2016) 7. Advair Diskus 250-50 mcg/dose Inhl dsdv 1 puff 2 times per day (Last dose: 07/07/2016) 8. bisoprolol fumarate 10 mg oral tab 1 tab twice a day (Last dose: 07/07/2016) 9. Crestor 10 mg Oral tab 1 tab once daily (Last dose: 07/07/2016) 10. Cymbalta 60 mg Oral cpDR 1 cap once daily (Last dose: 07/07/2016) 11. metformin 1,000 mg Oral tab 1 tab 2 times per day (Last dose: 07/07/2016) 12. Nasonex 50 mcg/actuation Nasal spry 2 sprays once daily (Last dose: 07/07/2016) 13. nitroglycerin 0.4 mg/hr Topical pt24 as needed (Last dose: Unknown) 14. pro air HFA daily (Last dose: 07/07/2016) 15. Xyzal 5 mg oral tab 1 tab once daily (Last dose: 07/07/2016) 16. Zanaflex 4 mg Oral tab 1 tab every 6 hours for Muscle Spasm (Last dose: 07/07/2016) 17. lisinopril 10 mg Oral tab 1 tab once daily (Last dose: 07/07/2016) 18. Fish Oil 300 mg Oral cap daily (Last dose: 07/07/2016) 19. Xarelto 20 mg oral tab 1 tab once daily (Last dose: 07/07/2016) 20. Voltaren Gel 1% Gel 21. lidocaine patch 22. Amitiza 24 mcg oral cap 1 cap 2 times per day (Last dose: 07/07/2016) 23. triamterene-hydrochlorothiazid 37.5-25 mg Oral tab 1 tab once daily (Last dose: 07/08/2016 08:00) - PMHx: "fatty liver:; Atrial Fib; Chronic Back pain; Diabetes - NIDDM: controlled; Hypertension; - PSHx: right knee ortho; lower back surgery; - The history from nurses notes was reviewed: and I agree with what is documented. - Social history: Smoking status: Patient states was never smoker of tobacco. No barriers to communication noted, The patient speaks fluent [place]ian. - Family history: Not pertinent. - : The pt / caregiver states he / she is on anticoagulants: Xarelto Home medication list is obtained from the patient. - Hospitalizations: : No recent hospitalization is reported. - Exposure Risk Screening:: None identified. - Immunization history:: All immunizations up-to-date. - Social history:: the patient is a non-smoker, the patient does not drink alcohol. ROS: 13:58 All systems are negative except as listed. The cardiovascular, respiratory, pc gastrointestinal and neurological components are also addressed in the HPI. Exam: 13:58 General Appearance: alert, mild distress. pc 13:58 ENT: ear, nose and throat normal, pharynx normal. 13:58 Neck: supple, non-tender, no masses are appreciated. 13:58 Respiratory: no respiratory distress, normal breath sounds, chest non-tender. 13:58 Cardiovascular: normal heart sounds, equal and full pulses bilaterally, tachycardia, 154bpm, Rhythm is irregularly irregular. 13:58 Abdomen: soft, non-tender, no organomegaly, normal bowel sounds. 13:58 Skin: skin color is normal, warm, diaphoretic. 13:58 Extremities: The extremities have a grossly normal appearance, are non-tender, without acute ROM abnormalities, no pedal edema. 13:58 Neuro: alert, oriented to person, place and time, cranial nerves normal as tested, no motor deficits, no sensory deficits. 13:58 Psych: normal mood. Vital Signs: 11:40 BP 136 / 76; Pulse 145; Resp 24; Temp 100.6(O); Pulse Ox 98% on 4 lpm NC; Weight 121.4 jf3 kg / 267.64 lbs (M); Height 6 ft. 0 in. (182.88 cm); Pain 5/10; 11:51 BP 125 / 84 (auto/); js13 11:51 Pulse 152 MON; Resp 18; Pulse Ox 99% on 4 lpm NC; js13 11:53 BP 169 / 85 (auto/); js13 11:53 Pulse 153 MON; Resp 18; Pulse Ox 99% on 4 lpm NC; js13 12:00 BP 138 / 82 (auto/); js13 12:00 Pulse 146 MON; Resp 16; Pulse Ox 97% on 4 lpm NC; js13 12:07 BP 157 / 91 (auto/); js13 12:07 Pulse 149 MON; Resp 16; Pulse Ox 98% on 4 lpm NC; js13 12:20 BP 154 / 76 (auto/); js13 12:20 Pulse 134 MON; Resp 18; Pulse Ox 98% on 4 lpm NC; js13 12:20 BP 154 / 76; Pulse 134; js13 12:25 BP 142 / 73 (auto/); js13 12:25 Pulse 133 MON; Resp 18; Pulse Ox 98% on 4 lpm NC; js13 12:26 BP 142 / 73; Pulse 149; js13 12:30 BP 141 / 78 (auto/); js13 12:30 Pulse 131 MON; Resp 18; Pulse Ox 98% on 4 lpm NC; js13 12:30 BP 141 / 78; Pulse 126; js13 12:35 BP 118 / 74 (auto/); js13 12:35 Pulse 128 MON; Resp 18; Pulse Ox 99% on 4 lpm NC; js13 12:40 BP 138 / 76 (auto/); js13 12:40 Pulse 129 MON; Resp 16; Pulse Ox 97% on 4 lpm NC; js13 12:43 Temp 98.4(O); js13 12:45 BP 140 / 85 (auto/); js13 12:46 Pulse 136 MON; Resp 16; Pulse Ox 95% on 4 lpm NC; js13 12:50 BP 146 / 81 (auto/); js13 12:50 Pulse 129 MON; Resp 16; Pulse Ox 97% on 4 lpm NC; js13 12:55 BP 147 / 88 (auto/); js13 12:55 Pulse 129 MON; Resp 16; Pulse Ox 97% on 4 lpm NC; js13 13:00 BP 148 / 92 (auto/); js13 13:00 Pulse 128 MON; Resp 16; Pulse Ox 97% on 4 lpm NC; js13 13:05 BP 130 / 70 (auto/); js13 13:05 Pulse 126 MON; Resp 16; Pulse Ox 97% on 4 lpm NC; js13 13:10 BP 124 / 74 (auto/); js13 13:10 Pulse 127 MON; Resp 16; Pulse Ox 98% on 4 lpm NC; js13 13:10 BP 124 / 74; Pulse 124; js13 13:15 BP 116 / 76 (auto/); js13 13:15 Pulse 121 MON; Resp 16; Pulse Ox 96% on 4 lpm NC; js13 13:15 BP 116 / 76; Pulse 114; js13 13:20 BP 121 / 72 (auto/); js13 13:20 Pulse 120 MON; Resp 16; Pulse Ox 96% on 4 lpm NC; js13 13:20 BP 121 / 72; Pulse 121; js13 13:25 BP 127 / 79 (auto/); js13 13:25 Pulse 114 MON; Resp 18; Pulse Ox 96% on 4 lpm NC; js13 13:30 BP 127 / 64 (auto/); js13 13:30 Pulse 111 MON; Resp 16; Pulse Ox 97% on 4 lpm NC; js13 13:35 BP 138 / 83 (auto/); js13 13:35 Pulse 101 MON; Resp 16; Pulse Ox 97% on 4 lpm NC; js13 13:40 BP 143 / 64 (auto/); js13 13:40 Pulse 98 MON; Resp 16; Pulse Ox 97% on 4 lpm NC; js13 13:45 BP 143 / 65 (auto/); js13 13:45 Pulse 98 MON; Resp 16; Pulse Ox 97% on 4 lpm NC; js13 13:50 BP 130 / 72 (auto/); js13 13:50 Pulse 99 MON; Resp 18; Pulse Ox 99% on 4 lpm NC; js13 13:55 BP 125 / 71 (auto/); js13 13:55 Pulse 92 MON; Resp 16; Pulse Ox 97% on 4 lpm NC; js13 14:00 BP 125 / 72 (auto/); js13 14:00 Pulse 95 MON; Resp 16; Pulse Ox 97% on 4 lpm NC; js13 14:05 BP 116 / 65 (auto/); js13 14:05 Pulse 94 MON; Resp 18; Pulse Ox 97% on 4 lpm NC; js13 14:10 BP 124 / 62 (auto/); js13 14:10 Pulse 91 MON; Resp 18; Pulse Ox 97% on 4 lpm NC; js13 14:15 BP 110 / 56 (auto/); js13 14:15 Pulse 87 MON; Resp 18; Pulse Ox 98% on 4 lpm NC; js13 14:20 BP 120 / 72 (auto/); js13 14:20 Pulse 84 MON; Resp 16; Pulse Ox 97% on 4 lpm NC; js13 14:25 BP 123 / 76 (auto/); js13 14:25 Pulse 81 MON; Resp 16; Pulse Ox 98% on 4 lpm NC; js13 14:30 BP 100 / 51 (auto/); js13 14:30 Pulse 80 MON; Resp 16; Pulse Ox 97% on 4 lpm NC; js13 14:35 BP 123 / 77 (auto/); js13 14:35 Pulse 77 MON; Resp 16; Pulse Ox 97% on 4 lpm NC; js13 14:40 BP 98 / 46 (auto/); js13 14:40 Pulse 75 MON; Resp 16; Pulse Ox 97% on 4 lpm NC; js13 14:45 BP 102 / 56 (auto/); js13 14:45 Pulse 76 MON; Resp 16; Pulse Ox 98% on 4 lpm NC; js13 14:50 BP 104 / 56 (auto/); js13 14:50 Pulse 75 MON; Resp 18; Pulse Ox 97% on 4 lpm NC; js13 14:55 BP 119 / 73 (auto/); js13 14:55 Pulse 78 MON; Resp 18; Pulse Ox 98% on 4 lpm NC; js13 15:00 BP 107 / 58 (auto/); js13 15:00 Pulse 75 MON; Resp 16; Pulse Ox 98% on 4 lpm NC; js13 15:05 BP 106 / 50 (auto/); js13 15:05 Pulse 74 MON; Resp 18; Pulse Ox 97% on 4 lpm NC; js13 15:10 BP 93 / 52 (auto/); js13 15:10 Pulse 74 MON; Resp 16; Pulse Ox 100% on 4 lpm NC; js13 15:15 BP 87 / 50 (auto/); js13 15:15 Pulse 72 MON; Resp 16; Pulse Ox 98% on 4 lpm NC; js13 15:20 BP 130 / 87 (auto/); lf1 15:20 Pulse 78 MON; Resp 16; Pulse Ox 98% on 4 lpm NC; lf1 15:25 BP 101 / 70 (auto/); js13 15:25 Pulse 78 MON; Resp 16; Pulse Ox 100% on 4 lpm NC; js13 15:30 BP 111 / 54 (auto/); js13 15:30 Pulse 74 MON; Resp 16; Pulse Ox 98% on 4 lpm NC; js13 15:35 BP 107 / 59 (auto/); js13 15:35 Pulse 70 MON; Resp 18; Pulse Ox 99% on 4 lpm NC; js13 15:40 BP 106 / 60 (auto/); js13 15:40 Pulse 74 MON; Resp 18; Pulse Ox 98% on 4 lpm NC; js13 15:45 BP 102 / 54 (auto/); js13 15:45 Pulse 72 MON; Resp 16; Pulse Ox 98% on 4 lpm NC; js13 15:50 BP 104 / 56 (auto/); js13 15:50 Pulse 73 MON; Resp 16; Pulse Ox 98% on 4 lpm NC; js13 15:55 BP 106 / 57 (auto/); js13 15:55 Pulse 69 MON; Resp 16; Pulse Ox 97% on 4 lpm NC; js13 16:05 BP 128 / 74 (auto/); js13 16:05 Pulse 71 MON; Resp 16; Pulse Ox 100% on 4 lpm NC; js13 16:15 BP 114 / 70 (auto/); js13 16:15 Pulse 72 MON; Resp 16; Pulse Ox 98% on 4 lpm NC; js13 16:30 BP 126 / 81 (auto/); js13 16:30 Pulse 71 MON; Resp 16; Temp 98.7(O); Pulse Ox 98% on 4 lpm NC; js13 16:45 Pulse 71 MON; Pulse Ox 99% ; js13 16:45 BP 141 / 80 (auto/); js13 16:50 Pain 4/10; js13 17:00 BP 139 / 88 (auto/); js13 17:00 Pulse 76 MON; Resp 16; Pulse Ox 97% on R/A; js13 11:40 Body Mass Index 36.30 (121.40 kg, 182.88 cm) jf3 MDM: 11:38 ECG WITH READING ER PHYS+CARDIAG ordered. EDMS 12:08 [place]/Pulse Ox/q 30 min VS ordered. pc 12:08 IV Saline Lock ordered. pc 12:08 Rhythm Strip to chart ordered. pc 12:08 Metoprolol 5 mg IVP every 5 minutes; Hold for SBP < 100 or HR < 60. x3 ordered. pc 12:08 Bisoprolol 10 mg PO once ordered. pc 12:09 B-Type Natiuretic Peptide Ordered. EDMS 12:09 Basic Metabolic Profile Ordered. EDMS 12:09 CBC with Diff Ordered. EDMS 12:09 Cardiac Injury Profile Ordered. EDMS 12:09 Troponin Ordered. EDMS 12:09 TSH with Free T4 Ordered. EDMS 12:09 -Blood Culture (Adults Only), peripheral from different site, or from device/port/PICC pc etc. if present ordered. 12:09 Obtain sample by nasopharyngeal swab ordered. pc 12:10 -Blood Culture Ordered. EDMS 12:10 -Influenza A&B Rapid Antigen - Nose Ordered. EDMS 12:10 portable chest Ordered. EDMS 12:12 -Blood Culture (Adults Only), peripheral from different site, or from device/port/PICC jlf etc. if present complete. 12:14 BLOOD CULTURES Ordered. EDMS 12:41 Cardizem - Diltiazem 120 mg PO once ordered. js13 12:52 B-Type Natiuretic Peptide Reviewed. pc 12:52 Basic Metabolic Profile Reviewed. pc 12:52 Cardiac Injury Profile Reviewed. pc 12:52 Troponin Reviewed. pc 12:52 -Influenza A&B Rapid Antigen - Nose Reviewed. pc 12:53 Metoprolol 5 mg IVP every 5 minutes; Hold for SBP < 100 or HR < 60. x3 ordered. pc 12:54 DIFFERENTIAL NO CHARGE Ordered. EDMS 12:54 PLATELET ESTIMATE Ordered. EDMS 13:13 [facility] Payment Agreement was scanned into [employer] and attached to record. jp5 13:13 Financial registration complete. jp5 13:58 Differential diagnosis: unstable angina, AFib with RVR. Plan: labs, EKG, imaging, meds. pc The patient not medicated with aspirin in the Emergency Department because aspirin was given by EMS prior to arrival. Data reviewed: old medical records, vital signs, nurses notes, EKG(s), lab test results, all radiology studies and available results. Test interpretation: EKG. 14:19 CBC with Diff Reviewed. pc 14:19 PLATELET ESTIMATE Reviewed. pc 14:19 portable chest Reviewed. pc 14:20 Repeat EKG (put time details section) ordered. pc 14:20 Redraw CIP &Troponin (put time in details section) ordered. pc 14:30 Repeat EKG (put time details section) complete. jlf 14:30 Redraw CIP &Troponin (put time in details section) complete. jlf 14:31 ECG WITH READING ER PHYS ordered. EDMS 14:31 CARDIAC MARKER PANEL Ordered. EDMS 14:33 Test interpretation: EKG. pc 15:25 Acetaminophen Tablet 650 mg PO once ordered. pc 15:25 Basic Metabolic Profile Reviewed. pc 15:25 Cardiac Injury Profile Reviewed. pc 15:25 CARDIAC MARKER PANEL Reviewed. pc 15:25 Troponin Reviewed. pc 15:25 TSH with Free T4 Reviewed. pc 15:29 LOW FAT LOW CHOLESTEROL+DIET ordered. EDMS 16:37 Test interpretation: LAB - all labs as ordered have been reviewed, interpreted and pc considered in the overall management of the clinical presentation; X-RAY - interpreted by Radiologist and personally reviewed, 1 view chest no acute disease. The patient has been re-examined and re-evaluated. The patient's symptoms have resolved after treatment, with his chest pain, dyspnea and diaphoresis resolved, and his pulse now 70-85 in rate-controlled AFib. Physician consultation: Dr. Thea Flynn regarding patient's condition, and advises the medications/treatment as provided. and agrees with the treatment provided and advises the discharge plans as outlined. Disposition: The historical points, examination findings, and any diagnostic results supporting the provided diagnosis, were discussed with the patient or legal guardian. The need for outpatient follow up with the provider listed on their discharge instructions was discussed. They were encouraged to return to [facility], or the nearest ED, if symptoms worsen/persist, or for any other questions/concerns. 07/09 10:19 ECG/EKG was scanned into [employer] and attached to record. gb 10:20 PCR was scanned into [employer] and attached to record. gb 10:20 Rhythm Strip was scanned into [employer] and attached to record. EC/30 11:47 Rate is 156 beats/min. Rhythm is irregularly irregular, A fib. QRS [place] is Normal. QRS pc interval is normal. QT interval is normal. No Q waves. ST Segment is depressed in leads II, V2, V3, V4, V5, V6, <1mm. Clinical impression: Nonspecific ST-T changes and Atrial Fibrillation with RVR. No change from previous ECG in March,. 14:33 Rate is 74 beats/min. Rhythm is irregularly irregular, A fib. QRS [place] is Normal. QRS pc interval is normal. QT interval is normal. No Q waves. T waves are Normal. No ST changes noted. Clinical impression: Atrial Fibrillation w/o RVR. Administered Medications: 12:12 Drug: Bisoprolol 10 mg [bisoprolol fumarate 5 mg tablet (2 tabs)] Route: PO; js13 12:15 Drug: Metoprolol 5 mg [metoprolol 5 mg/5 mL intravenous solution (5 mL)] Route: IVP; js13 Site: left antecubital; 12:20 Drug: Metoprolol 5 mg [metoprolol 5 mg/5 mL intravenous solution (5 mL)] Route: IVP; js13 Site: left antecubital; 12:20 Follow up: BP 154 / 76; Pulse 134 bpm; Response: Cardiac Rhythm is unchanged; HR not js13 changed 12:25 Drug: Metoprolol 5 mg [metoprolol 5 mg/5 mL intravenous solution (5 mL)] Route: IVP; js13 Site: left antecubital; 12:26 Follow up: BP 142 / 73; Pulse 149 bpm; HR unchanged js13 12:30 Follow up: BP 141 / 78; Pulse 126 bpm; Response: No significant change. js13 12:41 Drug: Cardizem - Diltiazem 120 mg [diltiazem 30 mg tablet (4 tabs)] Route: PO; js13 14:41 Follow up: Response: HR decreased to under 100 js13 13:05 Drug: Metoprolol 5 mg [metoprolol 5 mg/5 mL intravenous solution (5 mL)] Route: IVP; js13 Site: left antecubital; 13:10 Drug: Metoprolol 5 mg [metoprolol 5 mg/5 mL intravenous solution (5 mL)] Route: IVP; js13 Site: left antecubital; 13:10 Follow up: BP 124 / 74; Pulse 124 bpm; Response: No significant change. js13 13:15 Drug: Metoprolol 5 mg [metoprolol 5 mg/5 mL intravenous solution (5 mL)] Route: IVP; js13 Site: left antecubital; 13:15 Follow up: BP 116 / 76; Pulse 114 bpm; Response: HR decreased 114 BPM js13 13:20 Follow up: BP 121 / 72; Pulse 121 bpm; Response: No significant change. js13 15:32 Drug: Acetaminophen 650 mg [acetaminophen 325 mg tablet (2 tabs)] Route: PO; lf1 16:50 Follow up: Pain 4/10 Adult; Response: Pain is decreased js13 Critical Care Time: 16:37 Critical care time: Bedside Care: 40 minutes, Consultation: 10 minutes, Family pc Intervention: 10 minutes. Total time: 60 minutes Signatures: Dispatcher [employer] EDMS Serjio Dumas MD MD pc Fiorella Murphy, Reg Reg Yasmin EspitiaRN RN js13 Ria Franco, CAR DUMPER OPERATOR CAR DUMPER OPERATOR Sasha Long jp5 Jc Jimenez,RN RN jf3 Ashia Muro RN lf1 The chart was reviewed and I authenticate all verbal orders and agree with the evaluation and treatment provided.Corrections: (The following items were deleted from the chart) 13:20 11:57 Home Meds: triamterene-hydrochlorothiazid 37.5-25 mg Oral tab 1 tab once daily js13 (Last Dose: 07/07/2016); jf3 14:20 11:39 ECG WITH READING ER PHYS+CARDIAG ordered. EDKS EDMS Attachments: 13:13 [facility] Payment Agreement jp5 07/09 10:19 ECG/EKG Chart [facility]
--- NOTE | 2016-07-10 18:19 | EDDOCDS ---
Nurse's Notes [facility] Name: Jessica Franco Age: 61 yrs Sex: Male : 1955 Arrival Date: 07/08/2016 Time: 11:35 Bed 3 Private MD: Rafael Castro M.D. Diagnosis: Chronic atrial fibrillation-now rate-controlled;Other chest [id number], resolved Presentation: 07/08 11:37 Presenting complaint: EMS states: Chest pressure with SOB starting approx 0830 am. N/V jf3 in between. Call ed EMS approx 1030. EMS states diaphoretic and ashen sotelo in color. A-Fib on monitor. 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 Suicide/Homicide risk assessment- the patient denies having any suicidal and/or homicidal ideations and does not present with any other emotional, behavioral or mental health complaints. Status: Patient is not a service girl or dependent. Transition of care: patient was not received from another setting of care. Care prior to arrival: See EMS report. Medications administered prior to arrival: NTG, IV initiated. Saline lock initiated. Glucose check. 181 mg/dl Oxygen administered by EMS. 11:37 Acuity: WARREN Level 2 jf3 11:37 Method Of Arrival: Ambulance jf3 12:00 Adult Sepsis Screening: The patient does not have new or worsening altered mentation. jf3 Patient's respiratory rate is less than 22. Systolic blood pressure is greater than 100. Patient has a qSOFA score of 0- Negative Sepsis Screen. Triage Assessment: 11:40 General: Appears distressed, Behavior is cooperative. Pain: Location: mid-sternal area. jf3 Pain: Pain currently is 5 out of 10 on a pain scale. Pain: Quality of pain is described as pressure. Pt Declines HIV testing. The patient is triaged at the bedside. See Assessment in Nurses Notes section of ED record. Cardiovascular: Chest pain is described as severe, radiates Does not radiate. episodes are intermittent began 0830 today. Respiratory: Airway is patent Respiratory effort is even, unlabored, Respiratory pattern is regular, symmetrical, Reports shortness of breath at rest. Derm: Skin is diaphoretic, Skin is pale. Historical: - Allergies: Augmentin (Upset stomach); Neurontinnightmares; - Home Meds: 1. morphine 30 mg Oral CM24 1 cap twice a day (Last dose: 07/07/2016) 2. Singulair 10 mg Oral tab 1 tab once daily (Last dose: 07/07/2016) 3. Flomax 0.4 mg Oral cp24 1 cap once daily (Last dose: 07/07/2016) 4. prednisone 20 mg Oral tab 2 tabs once daily (Last dose: 07/07/2016) 5. diltiazem HCl 120 mg Oral cpER 1 cap once daily (Last dose: 07/07/2016) 6. Percocet 10-325 mg Oral tab 2 tab twice a day for Pain (Last dose: 07/07/2016) 7. Advair Diskus 250-50 mcg/dose Inhl dsdv 1 puff 2 times per day (Last dose: 07/07/2016) 8. bisoprolol fumarate 10 mg oral tab 1 tab twice a day (Last dose: 07/07/2016) 9. Crestor 10 mg Oral tab 1 tab once daily (Last dose: 07/07/2016) 10. Cymbalta 60 mg Oral cpDR 1 cap once daily (Last dose: 07/07/2016) 11. metformin 1,000 mg Oral tab 1 tab 2 times per day (Last dose: 07/07/2016) 12. Nasonex 50 mcg/actuation Nasal spry 2 sprays once daily (Last dose: 07/07/2016) 13. nitroglycerin 0.4 mg/hr Topical pt24 as needed (Last dose: Unknown) 14. pro air HFA daily (Last dose: 07/07/2016) 15. Xyzal 5 mg oral tab 1 tab once daily (Last dose: 07/07/2016) 16. Zanaflex 4 mg Oral tab 1 tab every 6 hours for Muscle Spasm (Last dose: 07/07/2016) 17. lisinopril 10 mg Oral tab 1 tab once daily (Last dose: 07/07/2016) 18. Fish Oil 300 mg Oral cap daily (Last dose: 07/07/2016) 19. Xarelto 20 mg oral tab 1 tab once daily (Last dose: 07/07/2016) 20. Voltaren Gel 1% Gel 21. lidocaine patch 22. Amitiza 24 mcg oral cap 1 cap 2 times per day (Last dose: 07/07/2016) 23. triamterene-hydrochlorothiazid 37.5-25 mg Oral tab 1 tab once daily (Last dose: 07/08/2016 08:00) - PMHx: "fatty liver:; Atrial Fib; Chronic Back pain; Diabetes - NIDDM: controlled; Hypertension; - PSHx: right knee ortho; lower back surgery; - The history from nurses notes was reviewed: and I agree with what is documented. - Social history: Smoking status: Patient states was never smoker of tobacco. No barriers to communication noted, The patient speaks fluent Beninese. - Family history: Not pertinent. - : The pt / caregiver states he / she is on anticoagulants: Xarelto Home medication list is obtained from the patient. - Hospitalizations: : No recent hospitalization is reported. - Exposure Risk Screening:: None identified. - Immunization history:: All immunizations up-to-date. - Social history:: the patient is a non-smoker, the patient does not drink alcohol. Screenin:53 Screening information is obtained from the patient. Fall risk: No risks identified. js13 Assistance ADL's: requires no assistance with activities of daily living. Abuse/DV Screen: The patient / caregiver reports he/she is: not in a situation that causes fear, pain or injury. Nutritional screening: No deficits noted. Advance Directives: There is no active DNR order. home support is adequate. Assessment: 11:53 General: Appears distressed, Behavior is appropriate for age, cooperative. js13 Neurological: Level of Consciousness is awake, alert. Cardiovascular: Rhythm is atrial fibrillation with rapid ventricular response Chest pain is described as Pain is 5 out of 10 on a pain scale. quality is heaviness, pressure, radiates back Chest pain began 0830 this morning. Respiratory: Airway is patent Respiratory effort is even, unlabored, Respiratory pattern is regular, Breath sounds are diminished. GI: Abdomen is obese, Bowel sounds present X 4 quads. Abd is soft and non tender. Derm: Skin is intact, Skin is diaphoretic, Skin is pink, Skin temperature is warm. 13:10 General: Appears in no apparent distress, Behavior is appropriate for age, cooperative. js13 Pain: Denies pain. Neurological: Level of Consciousness is awake, alert. Cardiovascular: Rhythm is atrial fibrillation with rapid ventricular response Chest pain is denied. Respiratory: Airway is patent Respiratory effort is even, unlabored, Respiratory pattern is regular. Derm: Skin is moist, Skin is pink, Skin temperature is warm. 13:36 General: Appears in no apparent distress, Behavior is appropriate for age, cooperative. js13 Pain: Denies pain. Neurological: Level of Consciousness is awake, alert. Cardiovascular: Rhythm is atrial fibrillation Chest pain is denied. Respiratory: Airway is patent Respiratory effort is even, unlabored, Respiratory pattern is regular. Derm: Skin is pink, warm & dry. 14:42 Adult Sepsis Screening: The patient does not have new or worsening altered mentation. js13 Patient's respiratory rate is less than 22. Systolic blood pressure is greater than 100. Patient has a qSOFA score of 0- Negative Sepsis Screen. General: Appears in no apparent distress, comfortable, Behavior is appropriate for age, cooperative. Pain: Denies pain. Neurological: Level of Consciousness is awake, alert. Cardiovascular: Rhythm is atrial fibrillation Chest pain is denied. Respiratory: Airway is patent Respiratory effort is even, unlabored, Respiratory pattern is regular. Derm: Skin is pink, warm & dry. 15:19 General: Appears in no apparent distress, comfortable, Behavior is appropriate for age, js13 cooperative. Pain: Location: head Pain currently is 3 out of 10 on a pain scale. Quality of pain is described as aching. Neurological: Level of Consciousness is awake, alert. Cardiovascular: Rhythm is atrial fibrillation Chest pain is denied. Respiratory: Airway is patent Respiratory effort is even, unlabored, Respiratory pattern is regular, symmetrical. Derm: Skin is pink, warm & dry. 16:00 Adult Sepsis Screening: The patient does not have new or worsening altered mentation. js13 Patient's respiratory rate is less than 22. Systolic blood pressure is greater than 100. Patient has a qSOFA score of 0- Negative Sepsis Screen. General: Appears in no apparent distress, comfortable, Behavior is appropriate for age, cooperative. Neurological: Level of Consciousness is awake, alert. Cardiovascular: Rhythm is atrial fibrillation Chest pain is denied. Respiratory: Airway is patent Respiratory effort is even, unlabored, Respiratory pattern is regular, symmetrical. Derm: Skin is pink, warm & dry. 16:25 General: Appears in no apparent distress, Behavior is appropriate for age, cooperative. js13 Pain: Location: head Pain currently is 4 out of 10 on a pain scale. Neurological: Level of Consciousness is awake, alert. Cardiovascular: Rhythm is atrial fibrillation Chest pain is denied. Respiratory: Airway is patent Respiratory effort is even, unlabored, Respiratory pattern is regular, symmetrical. Derm: Skin is pink, warm & dry. 16:47 General: Appears in no apparent distress, Behavior is appropriate for age, cooperative. js13 Pain: Pain currently is 4 out of 10 on a pain scale. Neurological: Level of Consciousness is awake, alert. Cardiovascular: Rhythm is atrial fibrillation Chest pain is denied. Respiratory: Airway is patent Respiratory effort is even, unlabored, Respiratory pattern is regular, symmetrical. Derm: Skin is pink, warm & dry. Vital Signs: 11:40 BP 136 / 76; Pulse 145; Resp 24; Temp 100.6(O); Pulse Ox 98% on 4 lpm NC; Weight 121.4 jf3 kg (M); Height 6 ft. 0 in. (182.88 cm); Pain 5/10; 11:51 BP 125 / 84 (auto/); js13 11:51 Pulse 152 MON; Resp 18; Pulse Ox 99% on 4 lpm NC; js13 11:53 BP 169 / 85 (auto/); js13 11:53 Pulse 153 MON; Resp 18; Pulse Ox 99% on 4 lpm NC; js13 12:00 BP 138 / 82 (auto/); js13 12:00 Pulse 146 MON; Resp 16; Pulse Ox 97% on 4 lpm NC; js13 12:07 BP 157 / 91 (auto/); js13 12:07 Pulse 149 MON; Resp 16; Pulse Ox 98% on 4 lpm NC; js13 12:20 BP 154 / 76 (auto/); js13 12:20 Pulse 134 MON; Resp 18; Pulse Ox 98% on 4 lpm NC; js13 12:20 BP 154 / 76; Pulse 134; js13 12:25 BP 142 / 73 (auto/); js13 12:25 Pulse 133 MON; Resp 18; Pulse Ox 98% on 4 lpm NC; js13 12:26 BP 142 / 73; Pulse 149; js13 12:30 BP 141 / 78 (auto/); js13 12:30 Pulse 131 MON; Resp 18; Pulse Ox 98% on 4 lpm NC; js13 12:30 BP 141 / 78; Pulse 126; js13 12:35 BP 118 / 74 (auto/); js13 12:35 Pulse 128 MON; Resp 18; Pulse Ox 99% on 4 lpm NC; js13 12:40 BP 138 / 76 (auto/); js13 12:40 Pulse 129 MON; Resp 16; Pulse Ox 97% on 4 lpm NC; js13 12:43 Temp 98.4(O); js13 12:45 BP 140 / 85 (auto/); js13 12:46 Pulse 136 MON; Resp 16; Pulse Ox 95% on 4 lpm NC; js13 12:50 BP 146 / 81 (auto/); js13 12:50 Pulse 129 MON; Resp 16; Pulse Ox 97% on 4 lpm NC; js13 12:55 BP 147 / 88 (auto/); js13 12:55 Pulse 129 MON; Resp 16; Pulse Ox 97% on 4 lpm NC; js13 13:00 BP 148 / 92 (auto/); js13 13:00 Pulse 128 MON; Resp 16; Pulse Ox 97% on 4 lpm NC; js13 13:05 BP 130 / 70 (auto/); js13 13:05 Pulse 126 MON; Resp 16; Pulse Ox 97% on 4 lpm NC; js13 13:10 BP 124 / 74 (auto/); js13 13:10 Pulse 127 MON; Resp 16; Pulse Ox 98% on 4 lpm NC; js13 13:10 BP 124 / 74; Pulse 124; js13 13:15 BP 116 / 76 (auto/); js13 13:15 Pulse 121 MON; Resp 16; Pulse Ox 96% on 4 lpm NC; js13 13:15 BP 116 / 76; Pulse 114; js13 13:20 BP 121 / 72 (auto/); js13 13:20 Pulse 120 MON; Resp 16; Pulse Ox 96% on 4 lpm NC; js13 13:20 BP 121 / 72; Pulse 121; js13 13:25 BP 127 / 79 (auto/); js13 13:25 Pulse 114 MON; Resp 18; Pulse Ox 96% on 4 lpm NC; js13 13:30 BP 127 / 64 (auto/); js13 13:30 Pulse 111 MON; Resp 16; Pulse Ox 97% on 4 lpm NC; js13 13:35 BP 138 / 83 (auto/); js13 13:35 Pulse 101 MON; Resp 16; Pulse Ox 97% on 4 lpm NC; js13 13:40 BP 143 / 64 (auto/); js13 13:40 Pulse 98 MON; Resp 16; Pulse Ox 97% on 4 lpm NC; js13 13:45 BP 143 / 65 (auto/); js13 13:45 Pulse 98 MON; Resp 16; Pulse Ox 97% on 4 lpm NC; js13 13:50 BP 130 / 72 (auto/); js13 13:50 Pulse 99 MON; Resp 18; Pulse Ox 99% on 4 lpm NC; js13 13:55 BP 125 / 71 (auto/); js13 13:55 Pulse 92 MON; Resp 16; Pulse Ox 97% on 4 lpm NC; js13 14:00 BP 125 / 72 (auto/); js13 14:00 Pulse 95 MON; Resp 16; Pulse Ox 97% on 4 lpm NC; js13 14:05 BP 116 / 65 (auto/); js13 14:05 Pulse 94 MON; Resp 18; Pulse Ox 97% on 4 lpm NC; js13 14:10 BP 124 / 62 (auto/); js13 14:10 Pulse 91 MON; Resp 18; Pulse Ox 97% on 4 lpm NC; js13 14:15 BP 110 / 56 (auto/); js13 14:15 Pulse 87 MON; Resp 18; Pulse Ox 98% on 4 lpm NC; js13 14:20 BP 120 / 72 (auto/); js13 14:20 Pulse 84 MON; Resp 16; Pulse Ox 97% on 4 lpm NC; js13 14:25 BP 123 / 76 (auto/); js13 14:25 Pulse 81 MON; Resp 16; Pulse Ox 98% on 4 lpm NC; js13 14:30 BP 100 / 51 (auto/); js13 14:30 Pulse 80 MON; Resp 16; Pulse Ox 97% on 4 lpm NC; js13 14:35 BP 123 / 77 (auto/); js13 14:35 Pulse 77 MON; Resp 16; Pulse Ox 97% on 4 lpm NC; js13 14:40 BP 98 / 46 (auto/); js13 14:40 Pulse 75 MON; Resp 16; Pulse Ox 97% on 4 lpm NC; js13 14:45 BP 102 / 56 (auto/); js13 14:45 Pulse 76 MON; Resp 16; Pulse Ox 98% on 4 lpm NC; js13 14:50 BP 104 / 56 (auto/); js13 14:50 Pulse 75 MON; Resp 18; Pulse Ox 97% on 4 lpm NC; js13 14:55 BP 119 / 73 (auto/); js13 14:55 Pulse 78 MON; Resp 18; Pulse Ox 98% on 4 lpm NC; js13 15:00 BP 107 / 58 (auto/); js13 15:00 Pulse 75 MON; Resp 16; Pulse Ox 98% on 4 lpm NC; js13 15:05 BP 106 / 50 (auto/); js13 15:05 Pulse 74 MON; Resp 18; Pulse Ox 97% on 4 lpm NC; js13 15:10 BP 93 / 52 (auto/); js13 15:10 Pulse 74 MON; Resp 16; Pulse Ox 100% on 4 lpm NC; js13 15:15 BP 87 / 50 (auto/); js13 15:15 Pulse 72 MON; Resp 16; Pulse Ox 98% on 4 lpm NC; js13 15:20 BP 130 / 87 (auto/); lf1 15:20 Pulse 78 MON; Resp 16; Pulse Ox 98% on 4 lpm NC; lf1 15:25 BP 101 / 70 (auto/); js13 15:25 Pulse 78 MON; Resp 16; Pulse Ox 100% on 4 lpm NC; js13 15:30 BP 111 / 54 (auto/); js13 15:30 Pulse 74 MON; Resp 16; Pulse Ox 98% on 4 lpm NC; js13 15:35 BP 107 / 59 (auto/); js13 15:35 Pulse 70 MON; Resp 18; Pulse Ox 99% on 4 lpm NC; js13 15:40 BP 106 / 60 (auto/); js13 15:40 Pulse 74 MON; Resp 18; Pulse Ox 98% on 4 lpm NC; js13 15:45 BP 102 / 54 (auto/); js13 15:45 Pulse 72 MON; Resp 16; Pulse Ox 98% on 4 lpm NC; js13 15:50 BP 104 / 56 (auto/); js13 15:50 Pulse 73 MON; Resp 16; Pulse Ox 98% on 4 lpm NC; js13 15:55 BP 106 / 57 (auto/); js13 15:55 Pulse 69 MON; Resp 16; Pulse Ox 97% on 4 lpm NC; js13 16:05 BP 128 / 74 (auto/); js13 16:05 Pulse 71 MON; Resp 16; Pulse Ox 100% on 4 lpm NC; js13 16:15 BP 114 / 70 (auto/); js13 16:15 Pulse 72 MON; Resp 16; Pulse Ox 98% on 4 lpm NC; js13 16:30 BP 126 / 81 (auto/); js13 16:30 Pulse 71 MON; Resp 16; Temp 98.7(O); Pulse Ox 98% on 4 lpm NC; js13 16:45 Pulse 71 MON; Pulse Ox 99% ; js13 16:45 BP 141 / 80 (auto/); js13 16:50 Pain 4/10; js13 17:00 BP 139 / 88 (auto/); js13 17:00 Pulse 76 MON; Resp 16; Pulse Ox 97% on R/A; js13 11:40 Body Mass Index 36.30 (121.40 kg, 182.88 cm) 3 Vitals: 11:40 Log In Time N/A - ambulance arrival. 3 ED Course: 11:36 Patient visited by Ria Franco PCA. jlf 11:36 Rafael Castro is Private Physician. [facility] 11:36 Patient moved to Waiting [facility] 11:36 Patient moved to 3 [facility] 11:40 Triage Initiated 3 11:53 The patient / caregiver is instructed regarding the plan of care and ED course. 13 11:53 EKG done. (by ED staff). Reviewed by Serjio Dumas MD. ct3 11:53 Inserted saline lock: 18 gauge in left antecubital area and blood collected. The js13 patient tolerated the procedure well. 11:54 Patient visited by Rajwinder Taho PCA. ct3 11:54 Patient has correct armband on for positive identification. Placed in gown. Call light ct3 in reach. Side rails up X2. campus monitor on. Pulse ox on. NIBP on. 11:56 Patient visited by Yasmin Sood RN. js13 11:56 Inserted saline lock: 16 gauge in right antecubital area The patient tolerated the js13 procedure well. 11:56 Maintain field IV. Dressing intact. Good blood return noted. Site clean & dry. Gauge & js13 site: 20 gauge in right forearm . No procedures done that require assistance. Labs drawn. (by ED staff). Sent per order to lab. Labs/Blood culture drawn. O2 via nasal cannula \\T\\ 4L/min. 11:59 Serjio Dumas MD is Attending Physician. pc 12:05 Patient visited by Serjio Dumas MD. pc 12:12 -Blood Culture Sent. js13 12:12 TSH with Free T4 Sent. js13 12:12 B-Type Natiuretic Peptide Sent. js13 12:12 Basic Metabolic Profile Sent. js13 12:12 CBC with Diff Sent. js13 12:12 Cardiac Injury Profile Sent. js13 12:12 Troponin Sent. js13 12:22 -Influenza A&B Rapid Antigen - Nose Sent. js13 12:41 Patient visited by Rajwinder Thao PCA. ct3 13:00 DIFFERENTIAL NO CHARGE Sent. js13 13:13 [facility] Payment Agreement was scanned into [employer] and attached to record. jp5 13:21 Patient visited by Yasmin Sood RN. js13 13:37 Patient visited by Yasmin Sood RN. js13 13:37 Yasmin Sood RN is Primary Nurse. js13 14:16 portable chest Returned. EDMS 14:33 Patient visited by Rajwinder Thao PCA. ct3 14:33 EKG done. (by ED staff). Reviewed by Serjio Dumas MD. ct3 14:41 CARDIAC MARKER PANEL Sent. js13 14:43 Patient visited by Yasmin Sood,AMNA. js13 15:21 Patient visited by Yasmin Sood,AMNA. js13 15:36 portable chest Returned. EDMS 16:01 Patient visited by Yasmin Sood RN. js13 16:26 Patient visited by Yasmin Sood,AMNA. js13 16:42 Thea Flynn is Referral Physician. pc 17:17 Discontinued IV lock intact, bleeding controlled, pressure dressing applied, No js13 redness/swelling at site. coban dressings applied to all 3 IV sites with 2 X 2 gauze. 07/09 10:19 ECG/EKG was scanned into [employer] and attached to record. gb 10:20 PCR was scanned into [employer] to [employer] and attached to record. gb 10:20 Rhythm Strip was scanned into [employer] and attached to record. gb 21:22 ECG WITH READING ER PHYS Returned. EDMS 21:23 EKG-ADULT Returned. EDMS Administered Medications: 07/08 12:12 Drug: Bisoprolol 10 mg [bisoprolol fumarate 5 mg tablet (2 tabs)] Route: PO; js13 12:15 Drug: Metoprolol 5 mg [metoprolol 5 mg/5 mL intravenous solution (5 mL)] Route: IVP; js13 Site: left antecubital; 12:20 Drug: Metoprolol 5 mg [metoprolol 5 mg/5 mL intravenous solution (5 mL)] Route: IVP; js13 Site: left antecubital; 12:20 Follow up: BP 154 / 76; Pulse 134 bpm; Response: Cardiac Rhythm is unchanged; HR not js13 changed 12:25 Drug: Metoprolol 5 mg [metoprolol 5 mg/5 mL intravenous solution (5 mL)] Route: IVP; js13 Site: left antecubital; 12:26 Follow up: BP 142 / 73; Pulse 149 bpm; HR unchanged js13 12:30 Follow up: BP 141 / 78; Pulse 126 bpm; Response: No significant change. js13 12:41 Drug: Cardizem - Diltiazem 120 mg [diltiazem 30 mg tablet (4 tabs)] Route: PO; js13 14:41 Follow up: Response: HR decreased to under 100 js13 13:05 Drug: Metoprolol 5 mg [metoprolol 5 mg/5 mL intravenous solution (5 mL)] Route: IVP; js13 Site: left antecubital; 13:10 Drug: Metoprolol 5 mg [metoprolol 5 mg/5 mL intravenous solution (5 mL)] Route: IVP; js13 Site: left antecubital; 13:10 Follow up: BP 124 / 74; Pulse 124 bpm; Response: No significant change. js13 13:15 Drug: Metoprolol 5 mg [metoprolol 5 mg/5 mL intravenous solution (5 mL)] Route: IVP; js13 Site: left antecubital; 13:15 Follow up: BP 116 / 76; Pulse 114 bpm; Response: HR decreased 114 BPM js13 13:20 Follow up: BP 121 / 72; Pulse 121 bpm; Response: No significant change. js13 15:32 Drug: Acetaminophen 650 mg [acetaminophen 325 mg tablet (2 tabs)] Route: PO; lf1 16:50 Follow up: Pain 410 Adult; Response: Pain is decreased js13 Attachments: 10:20 Rhythm Strip gb Intake: Order Results: Lab Order: B-Type Natiuretic Peptide; SPEC'M 07/08/16 11:40 Test: BRAIN NATRIURETIC PEPTIDE; Value: 173; Range: <100; Abnormal: Above high normal; Units: PG/ML; Status: F Lab Order: Basic Metabolic Profile; SPEC'07/08/16 11:40 Test: GLUCOSE, FASTING; Value: 201; Range: 80-110; Abnormal: Above high normal; Units: MG/DL; Status: F Test: BLOOD UREA NITROGEN; Value: 24; Range: 7-18; Abnormal: Above high normal; Units: MG/DL; Status: F Test: CREATININE FOR GFR; Value: 1.57; Range: 0.70-1.30; Abnormal: Above high normal; Units: MG/DL; Status: F Test: GLOMERULAR FILTRATION RATE; Value: 47.7; Range: >49; Abnormal: Below low normal; Status: F Test: SODIUM LEVEL; Value: 139; Range: 136-145; Units: MEQ/L; Status: F Test: POTASSIUM SERUM; Value: 3.7; Range: 3.5-5.1; Units: MEQ/L; Status: F Test: CHLORIDE LEVEL; Value: 100; Range: 98-107; Units: MEQ/L; Status: F Test: CARBON DIOXIDE LEVEL; Value: 27; Range: 21-32; Units: MEQ/L; Status: F Test: ANION GAP; Value: 12; Range: 8-16; Units: MEQ/L; Status: F Test: CALCIUM LEVEL; Value: 9.9; Range: 8.8-10.2; Units: MG/DL; Status: F Test Note: ; Units are mL/min/1.73 m2 Chronic Kidney Disease Staging per NKF: Stage I & II GFR >=60 Normal to Mildly Decreased Stage III GFR 30-59 Moderately Decreased Stage IV GFR 15-29 Severely Decreased Stage V GFR <15 Very Little GFR Left ESRD GFR <15 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 Lab Order: CBC with Diff; SPEC' 07/08/16 11:40 Test: WHITE BLOOD COUNT; Value: 7.4; Range: 4.0-10.0; Units: K/mm3; Status: F Test: RED BLOOD COUNT; Value: 4.69; Range: 4.30-6.10; Units: M/mm3; Status: F Test: HEMOGLOBIN; Value: 15.0; Range: 14.0-18.0; Units: g/dl; Status: F Test: HEMATOCRIT; Value: 45.1; Range: 42.0-52.0; Units: %; Status: F Test: MEAN CORPUSCULAR VOLUME; Value: 96.0; Range: 80.0-96.0; Units: fl; Status: F Test: MEAN CORPUSCULAR HEMOGLOBIN; Value: 31.9; Range: 27.0-33.0; Units: pg; Status: F Test: MEAN CORPUSCULAR HGB CONC; Value: 33.2; Range: 32.0-36.5; Units: g/dl; Status: F Test: RED CELL DISTRIBUTION WIDTH; Value: 12.6; Range: 11.5-14.5; Units: %; Status: F Test: PLATELET COUNT, AUTOMATED; Value: 167; Range: 150-450; Units: k/mm3; Status: F Test: NEUTROPHILS; Value: 72; Range: 35-75; Units: %; Status: F Test: BANDS; Value: 22; Range: < 11; Abnormal: Above high normal; Units: %; Status: F Test: LYMPHOCYTES; Value: 3; Range: 16-52; Abnormal: Below low normal; Units: %; Status: F Test: MONOCYTES; Value: 2; Range: 0-8; Units: %; Status: F Test: EOSINOPHILS; Value: 1; Range: 0-5; Units: %; Status: F Test: POIKILOCYTOSIS; Value: 1+; Status: F Lab Order: Cardiac Injury Profile; SPEC'M 07/08/16 11:40 Test: CPK CREATINE PHOSPHOKINASE; Value: 31; Range: 39-308; Abnormal: Below low normal; Units: U/L; Status: F Test: CK-MB VALUE MASS; Value: 1.0; Range: 0.0-3.6; Units: NG/ML; Status: F Test: MB/CK RELATIVE INDEX; Value: 3.22; Range: < OR =4; Status: F Test Note: ; DIAGNOSIS CRITERIA MMB ng/ml Relative Index (RI) NON-AMI < or = 5 N/A SOTELO ZONE > 5 < or = 4 AMI > 5 > 4 Lab Order: Troponin; SPEC'M 07/08/16 11:40 Test: TROPONIN I; Value: < 0.02; Range: < 0.10; Units: NG/ML; Status: F Test Note: ; Troponin I Reference Interval for [employer] LOCI: 99th Percentile= 0.00-0.045 ng/ml Risk Stratification: <= 0.10 ng/ml Decreased Risk for Adverse Clinical Events. 0.10-1.50 ng/ml Increased Risk for Adverse Clinical Events. Evaluation of additional criterion and/or repeat testing in 2-6 hours is suggested to rule out myocardial damage. >= 1.50 ng/ml Indicative of Myocardial Injury. Lab Order: TSH with Free T4; SPEC'M 07/08/16 11:40 Test: THYROID STIMULATING HORMONE; Value: 1.680; Range: 0.358-3.740; Units: uIU/ML; Status: F Test: FREE T4; Value: 1.26; Range: 0.76-1.46; Units: NG/DL; Status: F Lab Order: -Blood Culture; SPEC'M 07/08/16 11:40 Test: BLOOD CULTURE; Value: No growth after 24 hours . All specimens observed; Status: F Test: BLOOD CULTURE; Value: for 5 days. Results final at that time.; Status: F Test: BLOOD CULTURE; Value: No Growth after 48 hours. All Specimens observed; Status: F Test: BLOOD CULTURE; Value: for 7 days. Results final at that time.; Status: F Lab Order: -Influenza A&B Rapid Antigen - Nose; SPEC'M 07/08/16 12:15 Test: INFLUENZA A RAPID SCR by ICA; Value: INFLUENZA A RESULTS NEGATIVE; Status: F Test: INFLUENZA A RAPID SCR by ICA; Value: Comments:; Status: F Test: INFLUENZA B RAPID SCR by ICA; Value: INFLUENZA B RESULTS NEGATIVE; Status: F Test Note: ; The Influenza test is a direct rapid immunoassay for the qualitative detection of Influenza viral antigen. Cell culture (Viral Culture) testing should be considered to confirm NEGATIVE results and to assist in detecting other viruses that can provide similar clinical symptoms. Please contact the lab within 24 hours ([phone]) if confirmatory testing is desired. Lab Order: BLOOD CULTURES; SPEC'M 07/08/16 11:40 Test: BLOOD CULTURE; Value: No growth after 24 hours . All specimens observed; Status: F Test: BLOOD CULTURE; Value: for 5 days. Results final at that time.; Status: F Test: BLOOD CULTURE; Value: No Growth after 48 hours. All Specimens observed; Status: F Test: BLOOD CULTURE; Value: for 7 days. Results final at that time.; Status: F Lab Order: PLATELET ESTIMATE; SPEC'M 07/08/16 11:40 Test: PLATELET ESTIMATE; Value: NORMAL; Range: NORMAL; Status: F Lab Order: CARDIAC MARKER PANEL; SPEC'M 07/08/16 14:38 Test: CPK CREATINE PHOSPHOKINASE; Value: 35; Range: 39-308; Abnormal: Below low normal; Units: U/L; Status: F Test: CK-MB VALUE MASS; Value: 1.0; Range: 0.0-3.6; Units: NG/ML; Status: F Test: MB/CK RELATIVE INDEX; Value: 2.85; Range: < OR =4; Status: F Test: TROPONIN I; Value: < 0.02; Range: < 0.10; Units: NG/ML; Status: F Test Note: ; DIAGNOSIS CRITERIA MMB ng/ml Relative Index (RI) NON-AMI < or = 5 N/A SOTELO ZONE > 5 < or = 4 AMI > 5 > 4 Radiology Order: EKG-ADULT Test: EKG-ADULT REASON FOR EXAMINATION: Chest Pain; Stationary ECG Study; [facility] - ED; ; Test Date: 2016-07-08; Pat Name: JESSICA FRANCO Department:; Room: -; Gender: M Hanging Flags Decorator: ct; : 1955 Requested By: Serjio Mccloud; Order Number: [id number] Reading MD: Sophia Rae; Measurements; Intervals [place]; Rate: 74 P:; [place]: 0 QRS: 12; QRSD: 83 T: -5; QT: 363; QTc: 403; Interpretive Statements; ATRIAL FIBRILLATION; MINIMAL ST DEPRESSION; ABNORMAL RHYTHM ECG; DECREASED RATE 11:45; Electronically Signed On 07-09-2016 20:41:48 EST by Sophia Rae; Radiology Order: portable chest Test: portable chest REASON FOR EXAMINATION: Shortness of Breath; PORTABLE CHEST X-RAY: AP semi-erect view.; ; HISTORY: Shortness of breath.; ; Comparison chest x-ray is from April 03, 2016.; ; FINDINGS: EKG monitoring electrodes are seen. The lungs are symmetrically; aerated and free of infiltrate. The pleural angles are sharp. Heart size is; normal. Pulmonary vasculature is not increased.; ; IMPRESSION: No acute disease.; ; ; Signed by; Sung Ding MD 07/08/2016 03:19 P; Radiology Order: ECG WITH READING ER PHYS Test: ECG WITH READING ER PHYS REASON FOR EXAMINATION: REPEAT NOW; Stationary ECG Study; [facility] - ED; ; Test Date: 2016-07-08; Pat Name: JESSICA FRANCO Department:; Room: -; Gender: M Hanging Flags Decorator: ct; : 1955 Requested By: Serjio Mccloud; Order Number: [id number] Reading MD: Sophia Rae; Measurements; Intervals [place]; Rate: 156 P:; MN: 0 QRS: 11; QRSD: 76 T: -3; QT: 272; QTc: 438; Interpretive Statements; ATRIAL FIBRILLATION WITH RAPID VENTRICULAR RESPONSE; NONSPECIFIC ST T-WAVE ABNORMALITY; ABNORMAL RHYTHM ECG; INCREASED RATE 04/03/16; Electronically Signed On 07-09-2016 20:37:48 EST by Sophia Rae; Outcome: 07/08 16:42 Discharge ordered by Provider. pc 17:16 Discharge Assessment: Patient awake, alert and oriented x 3. No cognitive and/or js13 functional deficits noted. Patient verbalized understanding of disposition instructions. patient administered narcotics - no. The following High Risk Discharge criteria are identified: None. Discharged to home ambulatory, with family, with significant other. Condition: stable. Discharge instructions given to patient, significant other, Instructed on discharge instructions, follow up and referral plans. medication usage, Demonstrated understanding of instructions, medications, Pt was receptive of discharge instructions/ teaching. Prescriptions given X 1. No special radiology studies were completed. Property :Personal belongings accompany Pt. 17:18 Patient left the ED. js13 Signatures: Dispatcher [employer] EDMS Serjio Dumas MD MD pc Fiorella Murphy, Reg Reg gb Ashia Muro,RN RN lf1 Rajwinder Thao, FLAT SORTING MACHINE CLERK FLAT SORTING MACHINE CLERK ct3 Yasmin Sood,RN RN js13 Ria Franco, FLAT SORTING MACHINE CLERK FLAT SORTING MACHINE CLERK jlf Sasha Mustafa jp5 Jc Jimenez,RN RN jf3 Corrections: (The following items were deleted from the chart) 13:20 11:57 Home Meds: triamterene-hydrochlorothiazid 37.5-25 mg Oral tab 1 tab once daily js13 (Last Dose: 07/07/2016); jf3 15:27 15:20 Pulse 78bpm; Monitor; Pulse Ox 98%; lf1 lf1 16:50 16:45 BP 141 / 100 Auto; js13 js13 Chart Complete MTDD
== END 2016-07-08 17:18 | disposition home or self-care (01) ==
LOC: M ED 11:35
DX: I48.2 Chronic atrial fibrillation (principal); R07.89 Other chest pain; K76.0 Fatty (change of) liver, not elsewhere classified; G89.29 Other chronic pain; E11.9 Type 2 diabetes mellitus without complications; I10 Essential (primary) hypertension; Z79.01 Long term (current) use of anticoagulants; Z79.51 Long term (current) use of inhaled steroids; Z79.891 Long term (current) use of opiate analgesic; Z79.899 Other long term (current) drug therapy; Z88.1 Allergy status to other antibiotic agents; Z88.8 Allergy status to other drugs, medicaments and biological substances

== ENCOUNTER 2016-12-03 03:46 | Emergency (ER) | payer MEDICARE, OTHER ==
[~2016-12-03] VITALS: Ht 182.9 cm; Wt 117.9 kg
[~2016-12-03 03:46] MED LIST changes: +CRES10TA32 PO; +LEVA1TAB2 PO; -LEVA500T PO; -METF1000 PO; +METF10004 PO; -OXYC40TA12 PO; +OXYC40TA29 PO; -ROSU10TA PO
[2016-12-03] MEDS ORDERED: PROAAER10 INH (04:20)
[2016-12-03] MEDS ORDERED: MS C30TA6 PO (04:20)
[2016-12-03 04:33] LABS: BASO % 0.4 % (0.0-1.0); EOS # 0.1 K/mm3 (0.0-0.50); EOS % 0.7 % (0.0-3.0); LARGE UNSTAINED CELL # 0.1 K/mm3 (0.0-0.4); LYMPH # 0.8 K/mm3 (1.5-4.5); LYMPH % 9.7 % (24.0-44.0); MEAN CORPUSCULAR HEMOGLOBIN 33.8 pg (27.0-33.0); MEAN CORPUSCULAR HGB CONC 34.4 g/dl (32.0-36.5); MONO # 0.4 K/mm3 (0.0-0.8); MONO % 5.5 % (0.0-5.0); NEUTROPHILS # 6.6 K/mm3 (1.8-7.7); NEUTROPHILS % 82.6 % (36.0-66.0); PLATELET COUNT, AUTOMATED 181 k/mm3 (150-450); RED CELL DISTRIBUTION WIDTH 13.4 % (11.5-14.5)
[2016-12-03 04:34] LABS: VENOUS BASE EXCESS 3.8 (-2.0-2.0); VENOUS O2 SATURATION 96.7 % (60.0-80.0); VENOUS PARTIAL PRESSURE O2 82.1 mmHg (30.0-50.0); VENOUS STANDARD HCO3 27.8 MEQ/L; VENOUS TOTAL CO2 26.8 MEQ/L (24.0-28.0)
[2016-12-03 04:42] LABS: INR 1.2
[2016-12-03 04:47] LABS: ANION GAP 11 MEQ/L (8-16); BLOOD UREA NITROGEN 21 MG/DL (7-18); CALCIUM LEVEL 9.6 MG/DL (8.8-10.2); CARBON DIOXIDE LEVEL 27 MEQ/L (21-32); CHLORIDE LEVEL 96 MEQ/L (98-107); CREATININE FOR GFR 1.25 MG/DL (0.70-1.30); GLOMERULAR FILTRATION RATE > 60.0 (>49); GLUCOSE, FASTING 193 MG/DL (80-110); POTASSIUM SERUM 3.6 MEQ/L (3.5-5.1); SODIUM LEVEL 134 MEQ/L (136-145)
--- NOTE | 2016-12-03 06:11 | REP ---
Clinical: Cough and dyspnea . Comparison: 07/08/2016 . Technique: PA and lateral. Findings: The mediastinum and cardiac silhouette are normal. The lung carey are clear and without acute consolidation, effusion, or pneumothorax. The skeletal structures are intact and normal. Impression: 1. No acute cardiopulmonary process. Signed by Tyrone Dixon MD 12/03/2016 06:02 A
[2016-12-03 06:19] VITALS: O2SAT 94
[2016-12-03] MEDS ORDERED: PRED20TA PO (06:35)
[2016-12-03 08:16] VITALS: BP 155/103
--- NOTE | 2016-12-04 07:27 | ECGEPIP ---
Stationary ECG Study [facility] - ED Test Date: 2016-12-03 Pat Name: JESSICA FRANCO Department: Room: - Gender: M Planner/Scheduler: anna : 1955 Requested By: PEGGY Dorman Order Number: [id number] Reading MD: Sophia Rae Measurements Intervals [place] Rate: 112 P: [place]: 0 QRS: 4 QRSD: 81 T: -12 QT: 317 QTc: 434 Interpretive Statements ATRIAL FIBRILLATION WITH RAPID VENTRICULAR RESPONSE MODERATE ST DEPRESSION INCREASED RATE 07/08/16 Electronically Signed On 12-04-2016 7:27:08 EDT by Sophia Rae
== END 2016-12-03 08:24 | disposition home or self-care (01) ==
LOC: EDBD 03:46 → M ED 04:49
DX: J44.9 Chronic obstructive pulmonary disease, unspecified (principal)

== ENCOUNTER → 2016-12-30 | Outpatient (REF) | payer MEDICARE, OTHER ==
[~2016-12-30] MED LIST changes: +ADV250INH INH; +FLOM5CAP PO; +GLIP5TAB8 PO; +MOME50SP; +MOVA1TAB2 PO; +MS C30TA6 PO; +PRED20TA PO; +PROAAER10 INH; +SING10TA32 PO; +TRIA37.5 PO; +XYZA5TAB2 PO
[2016-12-30 19:38] LABS: ALBUMIN 3.6 GM/DL (3.2-5.2); ALBUMIN/GLOBULIN RATIO 1.16 (1.00-1.93); BILIRUBIN,TOTAL 1.1 MG/DL (0.2-1.0); CALCIUM LEVEL 8.6 MG/DL (8.8-10.2); CREATININE FOR GFR 1.35 MG/DL (0.70-1.30); GLOMERULAR FILTRATION RATE 56.8 (>49); POTASSIUM SERUM 3.9 MEQ/L (3.5-5.1); TOTAL PROTEIN 6.7 GM/DL (6.4-8.2)
== END ==
LOC: M LABDRWCV 17:57
PROVIDERS: ATTEND Family Medicine
DX: E78.5 Hyperlipidemia, unspecified (principal); E11.65 Type 2 diabetes mellitus with hyperglycemia; I10 Essential (primary) hypertension

== ENCOUNTER 2017-03-01 15:59 | Emergency (ER) | payer MEDICARE, OTHER ==
[~2017-03-01] VITALS: Ht 182.9 cm; Wt 109.1 kg
[~2017-03-01 15:59] MED LIST changes: -ADV250INH INH; -FLOM5CAP PO; -GLIP5TAB8 PO; -MOME50SP; -MOVA1TAB2 PO; -SING10TA32 PO; -TRIA37.5 PO; -XYZA5TAB2 PO
[2017-03-01 16:00] VITALS: BP 153/85
[2017-03-01] MEDS ORDERED: XYZA5TAB2 PO (16:14)
[2017-03-01] MEDS ORDERED: SING10TA32 PO (16:14)
[2017-03-01] MEDS ORDERED: TRIA37.5 PO (16:14)
[2017-03-01] MEDS ORDERED: ADV250INH INH (16:14)
[2017-03-01] MEDS ORDERED: GLIP5TAB8 PO (16:14)
[2017-03-01] MEDS ORDERED: FLOM5CAP PO (16:14)
[2017-03-01] MEDS ORDERED: MS C30TA6 PO (16:14)
[2017-03-01] MEDS ORDERED: MOVA1TAB2 PO (16:14)
[2017-03-01] MEDS ORDERED: MOME50SP (16:14)
--- NOTE | 2017-03-02 13:20 | REP ---
LEFT FOOT SERIES: Four views of the left foot are performed. There is no acute fracture or dislocation. Mild scattered vascular calcifications are present. Moderate joint space narrowing, subchondral sclerosis and spurring is seen at the first metatarsophalangeal joint. IMPRESSION: Degenerative changes. No evidence of acute fracture or dislocation. Signed by Daniel Moody MD 03/02/2017 07:03 P
== END 2017-03-01 17:30 | disposition home or self-care (01) ==
LOC: M ED 15:59
DX: M19.072 Primary osteoarthritis, left ankle and foot (principal); G62.9 Polyneuropathy, unspecified

== ENCOUNTER → 2017-08-27 | Outpatient (REF) | payer MEDICARE, OTHER ==
[2017-08-27 17:56] LABS: ALBUMIN 4.1 GM/DL (3.2-5.2); ALBUMIN/GLOBULIN RATIO 1.32 (1.00-1.93); ALKALINE PHOSPHATASE 980 U/L (45-117); ALT/SGPT 104 U/L (12-78); ANION GAP 13 MEQ/L (8-16); AST/SGOT 114 U/L (7-37); BLOOD UREA NITROGEN 17 MG/DL (7-18); CALCIUM LEVEL 9.3 MG/DL (8.8-10.2); CARBON DIOXIDE LEVEL 27 MEQ/L (21-32); CHLORIDE LEVEL 101 MEQ/L (98-107); CHOLESTEROL LEVEL 293 MG/DL (<200); CHOLESTEROL RISK RATIO 4.803 (<5); CREATININE FOR GFR 1.18 MG/DL (0.70-1.30); GLOMERULAR FILTRATION RATE > 60.0 (>49); GLUCOSE, FASTING 131 MG/DL (70-100); HDL CHOLESTEROL 61 MG/DL (>40); LDL CHOLESTEROL 191.6 MG/DL (<100); NON-HDL-C 232 MG/DL; POTASSIUM SERUM 3.9 MEQ/L (3.5-5.1); SODIUM LEVEL 141 MEQ/L (136-145); TOTAL PROTEIN 7.2 GM/DL (6.4-8.2); TRIGLYCERIDES LEVEL 202 MG/DL (<150)
[2017-08-27 18:29] LABS: HEMATOCRIT 43.2 % (42.0-52.0); HEMOGLOBIN 14.5 g/dl (14.0-18.0); MEAN CORPUSCULAR HGB CONC 33.6 g/dl (32.0-36.5); MEAN CORPUSCULAR VOLUME 95.4 fl (80.0-96.0); PLATELET COUNT, AUTOMATED 242 10^3/uL (150-450); RED BLOOD COUNT 4.53 10^6/uL (4.30-6.10); RED CELL DISTRIBUTION WIDTH 13.1 % (11.5-14.5); WHITE BLOOD COUNT 7.3 10^3/uL (4.0-10.0)
[2017-08-27 19:32] LABS: ESTIMATED AVERAGE GLUCOSE 117 MG/DL (60-110); HEMOGLOBIN A1c 5.7 %
== END ==
LOC: M LABDRWCV 16:48
DX: N40.0 Benign prostatic hyperplasia without lower urinary tract symptoms (principal); I10 Essential (primary) hypertension; E11.65 Type 2 diabetes mellitus with hyperglycemia
CPT/HCPCS: 84443

== ENCOUNTER → 2017-11-18 | Outpatient (REF) | payer MEDICARE, OTHER ==
[2017-11-18 16:46] LABS: BASO # 0.1 10^3/uL (0.0-0.2); BASO % 0.7 % (0.0-1.0); EOS # 0.2 10^3/uL (0.0-0.50); HEMATOCRIT 43.9 % (42.0-52.0); HEMOGLOBIN 14.9 g/dl (13.5-17.5); IMMATURE GRANULOCYTE % 1.3 % (0-3.0); LYMPH # 1.7 10^3/uL (1.5-4.5); LYMPH % 19.7 % (24.0-44.0); MEAN CORPUSCULAR HEMOGLOBIN 32.4 pg (27.0-33.0); MEAN CORPUSCULAR HGB CONC 33.9 g/dl (32.0-36.5); MEAN CORPUSCULAR VOLUME 95.4 fl (80.0-96.0); MONO % 11.2 % (0.0-5.0); NEUTROPHILS # 5.5 10^3/uL (1.8-7.7); NEUTROPHILS % 65.1 % (36.0-66.0); PLATELET COUNT, AUTOMATED 210 10^3/uL (150-450); RED CELL DISTRIBUTION WIDTH 13.7 % (11.5-14.5); WHITE BLOOD COUNT 8.5 10^3/uL (4.0-10.0)
[2017-11-18 16:53] LABS: ALBUMIN 4.1 GM/DL (3.2-5.2); ALBUMIN/GLOBULIN RATIO 1.32 (1.00-1.93); ALKALINE PHOSPHATASE 967 U/L (45-117); ALT/SGPT 246 U/L (12-78); ANION GAP 11 MEQ/L (8-16); AST/SGOT 224 U/L (7-37); BILIRUBIN,TOTAL 3.8 MG/DL (0.2-1.0); BLOOD UREA NITROGEN 14 MG/DL (7-18); CALCIUM LEVEL 9.5 MG/DL (8.8-10.2); CARBON DIOXIDE LEVEL 29 MEQ/L (21-32); CHLORIDE LEVEL 96 MEQ/L (98-107); CREATININE FOR GFR 1.31 MG/DL (0.70-1.30); GLOMERULAR FILTRATION RATE 58.6 (>49); GLUCOSE, FASTING 151 MG/DL (70-100); POTASSIUM SERUM 3.9 MEQ/L (3.5-5.1); SODIUM LEVEL 136 MEQ/L (136-145); TOTAL PROTEIN 7.2 GM/DL (6.4-8.2)
== END ==
LOC: M LABDRWCV 16:07
DX: R74.0 Nonspecific elevation of levels of transaminase and lactic acid dehydrogenase [LDH] (principal); R10.11 Right upper quadrant pain
CPT/HCPCS: 80053

== ENCOUNTER → 2017-12-26 | Outpatient (CLI) | payer MEDICARE, OTHER ==
[~2017-12-26] MED LIST changes: -/CLON1TA; -/WARF25TA OR; -/WARF5TA OR; -ACTO15TA OR; -ACTO30TA OR; -ADVAIR INH; -BISO10TA PO; -BISO10TA2 OR; -CARD120C3 PO; -COUM10TA OR; -CRES10TA32 PO; -CRES5TAB OR; -CYMB60CA3 PO; -DIAZIDE PO; -DYAZ37.5 OR; -FISH300C2 OR; -Fish Oil OR; +GASTROGRAFIN SOLUTION 30ML (Q9963) As Ordered; -GLUC500T OR; +ISOVUE-370 76% 100ML VIAL (Q9967) As Ordered; -LEVA1TAB2 PO; -LISI-542 PO; -METF10004 PO; -METF500T4 OR; -MS C30TA6 PO; -Morphine IR; -NITR0.4S SL; -NITR4TASL SL; -OXYC1TAB16 PO; -OXYC1TAB23 PO; -OXYC40TA19 OR; -OXYC40TA29 PO; -OXYCODONE; -PRED20TA PO; -PREG100CA OR; -PRO-AIR HFA; -PROAAER10 INH; -SKEL800T5; -SKEL800T5 OR; -TRIA37.53 PO; -XARE20TA PO; -ZANA4TAB PO; -ZOLO100T OR; -ZOLO50TA OR; -[UNRECOGNIZED DRUG - CODE] OR; -[UNRECOGNIZED DRUG - MIXTURE]; -nucynta OR
== END ==
LOC: M RAD 13:59
DX: K83.1 Obstruction of bile duct (principal); R74.0 Nonspecific elevation of levels of transaminase and lactic acid dehydrogenase [LDH]
CPT/HCPCS: Q9963

== ENCOUNTER 2018-01-12 06:52 | Day surgery (SDC) | payer MEDICARE, OTHER ==
[2018-01-12] MEDS ORDERED: LR 1,000 ML IV ×2 (07:15→09:15)
[2018-01-12] MEDS ORDERED: LIDOCAINE 2% INJ 100 MG/5 ML SDV (FOR ANES.) As Ordered (07:18)
[2018-01-12] MEDS ORDERED: SUCCINYLCHOLINE 100 MG/5 ML SYRINGE (J0330) As Ordered ×2 (07:18→08:17)
[2018-01-12] MEDS ORDERED: ONDANSETRON 4MG/2ML VIAL (J2405) As Ordered (07:18)
[2018-01-12] MEDS ORDERED: MIDAZOLAM INJ 2 MG/2 ML VIAL (J2250) As Ordered (07:18)
[2018-01-12] MEDS ORDERED: fentaNYL 100 MCG/2 ML INJECTION (J3010) As Ordered (07:18)
[2018-01-12] MEDS ORDERED: dexameTHASONE 4 MG/ML 1ML VIAL (J1100) As Ordered (07:18)
[2018-01-12] MEDS ORDERED: ROCURONIUM BROMIDE 50 MG/5 ML VIAL As Ordered (07:18)
[2018-01-12] MEDS ORDERED: PROPOFOL 200 MG/20 ML VIAL As Ordered (07:18)
[2018-01-12 07:42] LABS: BEDSIDE GLUCOSE 168 MG/DL (80-115)
[2018-01-12] MEDS: ISOVUE-300 61% 50ML VIAL (Q9967) As Ordered (08:15)
[2018-01-12 08:56] LABS: BEDSIDE GLUCOSE 181 MG/DL (80-115)
[2018-01-12] MEDS ORDERED: ONDANSETRON 4MG/2ML VIAL (J2405) IV (09:15)
[2018-01-12] MEDS ORDERED: fentaNYL 100 MCG/2 ML INJECTION (J3010) IV (09:15)
== END 2018-01-12 10:05 | disposition home or self-care (01) ==
LOC: M SDC 06:52
DX: K80.50 Calculus of bile duct without cholangitis or cholecystitis without obstruction (principal); R74.8 Abnormal levels of other serum enzymes; E78.5 Hyperlipidemia, unspecified; I48.91 Unspecified atrial fibrillation; E11.9 Type 2 diabetes mellitus without complications; I10 Essential (primary) hypertension; N40.0 Benign prostatic hyperplasia without lower urinary tract symptoms; Z88.0 Allergy status to penicillin; Z79.899 Other long term (current) drug therapy; Z79.84 Long term (current) use of oral hypoglycemic drugs; Z79.02 Long term (current) use of antithrombotics/antiplatelets
CPT/HCPCS: 43274

== ENCOUNTER → 2018-01-29 | Outpatient (REF) | payer MEDICARE, OTHER ==
[2018-01-29 16:25] LABS: MEAN CORPUSCULAR HEMOGLOBIN 33.3 pg (27.0-33.0); MEAN CORPUSCULAR HGB CONC 34.1 g/dl (32.0-36.5); MEAN CORPUSCULAR VOLUME 97.4 fl (80.0-96.0); PLATELET COUNT, AUTOMATED 189 10^3/uL (150-450); RED BLOOD COUNT 4.21 10^6/uL (4.30-6.10); RED CELL DISTRIBUTION WIDTH 13.3 % (11.5-14.5)
== END ==
LOC: M LAB REF 16:12
DX: K92.1 Melena (principal)
CPT/HCPCS: 85027

== ENCOUNTER → 2018-03-03 | Outpatient (REF) | payer MEDICARE, OTHER ==
[2018-03-03 19:08] LABS: BASO # 0.1 10^3/uL (0.0-0.2); BASO % 0.8 % (0.0-1.0); EOS # 0.1 10^3/uL (0.0-0.50); EOS % 2.1 % (0.0-3.0); HEMATOCRIT 43.4 % (42.0-52.0); HEMOGLOBIN 14.7 g/dl (13.5-17.5); IMMATURE GRANULOCYTE % 2.1 % (0-3.0); LYMPH % 30.6 % (24.0-44.0); MEAN CORPUSCULAR HEMOGLOBIN 32.9 pg (27.0-33.0); MEAN CORPUSCULAR HGB CONC 33.9 g/dl (32.0-36.5); MEAN CORPUSCULAR VOLUME 97.1 fl (80.0-96.0); MONO # 0.6 10^3/uL (0.0-0.8); MONO % 8.6 % (0.0-5.0); NEUTROPHILS # 3.6 10^3/uL (1.8-7.7); NEUTROPHILS % 55.8 % (36.0-66.0); PLATELET COUNT, AUTOMATED 194 10^3/uL (150-450); RED BLOOD COUNT 4.47 10^6/uL (4.30-6.10); RED CELL DISTRIBUTION WIDTH 13.2 % (11.5-14.5); WHITE BLOOD COUNT 6.5 10^3/uL (4.0-10.0)
[2018-03-03 19:29] LABS: ALBUMIN 4.2 GM/DL (3.2-5.2); ALKALINE PHOSPHATASE 217 U/L (45-117); ALT/SGPT 50 U/L (12-78); ANION GAP 13 MEQ/L (8-16); AST/SGOT 48 U/L (7-37); BILIRUBIN,TOTAL 0.5 MG/DL (0.2-1.0); BLOOD UREA NITROGEN 22 MG/DL (7-18); CALCIUM LEVEL 9.5 MG/DL (8.8-10.2); CARBON DIOXIDE LEVEL 28 MEQ/L (21-32); CHLORIDE LEVEL 101 MEQ/L (98-107); CREATININE FOR GFR 1.17 MG/DL (0.70-1.30); GLOMERULAR FILTRATION RATE > 60.0 (>49); GLUCOSE, FASTING 120 MG/DL (70-100); POTASSIUM SERUM 4.4 MEQ/L (3.5-5.1); SODIUM LEVEL 142 MEQ/L (136-145)
== END ==
LOC: M LABDRWCV 18:09
DX: R93.2 Abnormal findings on diagnostic imaging of liver and biliary tract (principal); R74.0 Nonspecific elevation of levels of transaminase and lactic acid dehydrogenase [LDH]
CPT/HCPCS: 80053

== ENCOUNTER → 2018-03-03 | Outpatient (REF) | payer MEDICARE, OTHER ==
[2018-03-03 19:07] LABS: HEMATOCRIT 43.5 % (42.0-52.0); HEMOGLOBIN 14.7 g/dl (13.5-17.5); MEAN CORPUSCULAR HEMOGLOBIN 32.9 pg (27.0-33.0); MEAN CORPUSCULAR HGB CONC 33.8 g/dl (32.0-36.5); MEAN CORPUSCULAR VOLUME 97.3 fl (80.0-96.0); PLATELET COUNT, AUTOMATED 188 10^3/uL (150-450); RED BLOOD COUNT 4.47 10^6/uL (4.30-6.10); RED CELL DISTRIBUTION WIDTH 13.3 % (11.5-14.5); WHITE BLOOD COUNT 6.5 10^3/uL (4.0-10.0)
[2018-03-03 19:37] LABS: ALBUMIN 4.2 GM/DL (3.2-5.2); ALBUMIN/GLOBULIN RATIO 1.56 (1.00-1.93); ALKALINE PHOSPHATASE 214 U/L (45-117); ALT/SGPT 51 U/L (12-78); ANION GAP 13 MEQ/L (8-16); AST/SGOT 45 U/L (7-37); BILIRUBIN,TOTAL 0.5 MG/DL (0.2-1.0); BLOOD UREA NITROGEN 23 MG/DL (7-18); CALCIUM LEVEL 9.4 MG/DL (8.8-10.2); CARBON DIOXIDE LEVEL 28 MEQ/L (21-32); CHLORIDE LEVEL 103 MEQ/L (98-107); CHOLESTEROL LEVEL 276 MG/DL (<200); CHOLESTEROL RISK RATIO 4.119 (<5); CREATININE FOR GFR 1.14 MG/DL (0.70-1.30); GLOMERULAR FILTRATION RATE > 60.0 (>49); GLUCOSE, FASTING 121 MG/DL (70-100); HDL CHOLESTEROL 67 MG/DL (>40); LDL CHOLESTEROL 148 MG/DL (<100); NON-HDL-C 209 MG/DL; POTASSIUM SERUM 4.4 MEQ/L (3.5-5.1); SODIUM LEVEL 144 MEQ/L (136-145); TOTAL PROTEIN 6.9 GM/DL (6.4-8.2); TRIGLYCERIDES LEVEL 307 MG/DL (<150)
[2018-03-03 23:40] LABS: ESTIMATED AVERAGE GLUCOSE 131 MG/DL (60-110); HEMOGLOBIN A1c 6.2 %
== END ==
LOC: M LABDRAWC 18:07
DX: I10 Essential (primary) hypertension (principal); E11.65 Type 2 diabetes mellitus with hyperglycemia; I48.91 Unspecified atrial fibrillation; E78.5 Hyperlipidemia, unspecified
CPT/HCPCS: 84443

== ENCOUNTER → 2018-08-06 | Outpatient (REF) | payer MEDICARE, OTHER ==
[~2018-08-06] MED LIST changes: +/CLON1TA; +/WARF25TA OR; +/WARF5TA OR; +ACTO15TA OR; +ACTO30TA OR; +ADV250INH INH; +ADVAIR INH; +BACL10TA2 PO; +BISO10TA PO; +BISO10TA2 OR; +CARD120C3 PO; +COUM10TA OR; +CRES10TA32 PO; +CRES5TAB OR; +CYMB60CA3 PO; +DIAZIDE PO; +DILT120C82 PO; +DILT30TA PO; +DYAZ37.5 OR; +FISH300C2 OR; +FLOM0.4C39 PO; +Fish Oil OR; -GASTROGRAFIN SOLUTION 30ML (Q9963) As Ordered; +GLIP5TAB8 PO; +GLUC500T OR; -ISOVUE-370 76% 100ML VIAL (Q9967) As Ordered; +LEVA1TAB2 PO; +LISI-542 PO; +LORA-243 PO; +METF10004 PO; +METF500T4 OR; +MOME50SP; +MOVA1TAB2 PO; +MS C30TA6 PO; +Morphine IR; +NITR0.4S SL; +NITR4TASL SL; +OXYC10TA3 PO; +OXYC1TAB23 PO; +OXYC40TA19 OR; +OXYC40TA29 PO; +OXYCODONE; +PRED20TA PO; +PREG100CA OR; +PRO-AIR HFA; +PROAAER10 INH; +SING10TA32 PO; +SKEL800T5; +SKEL800T5 OR; +TRIA37.5 PO; +TRIA37.53 PO; +XARE20TA PO; +XYZA5TAB2 PO; +ZANA4TAB PO; +ZOLO100T OR; +ZOLO50TA OR; +[UNRECOGNIZED DRUG - CODE] OR; +[UNRECOGNIZED DRUG - MIXTURE]; +nucynta OR
[2018-08-06 16:43] LABS: BASO # 0.1 10^3/uL (0.0-0.2); BASO % 1.2 % (0.0-1.0); EOS # 0.2 10^3/uL (0.0-0.50); EOS % 2.1 % (0.0-3.0); HEMATOCRIT 42.8 % (42.0-52.0); HEMOGLOBIN 14.5 g/dl (13.5-17.5); LYMPH # 2.7 10^3/uL (1.5-4.5); LYMPH % 34.9 % (24.0-44.0); MEAN CORPUSCULAR HGB CONC 33.9 g/dl (32.0-36.5); MEAN CORPUSCULAR VOLUME 97.3 fl (80.0-96.0); MONO # 0.7 10^3/uL (0.0-0.8); MONO % 9.2 % (0.0-5.0); NEUTROPHILS # 3.8 10^3/uL (1.8-7.7); NEUTROPHILS % 50.2 % (36.0-66.0); PLATELET COUNT, AUTOMATED 218 10^3/uL (150-450); WHITE BLOOD COUNT 7.6 10^3/uL (4.0-10.0)
[2018-08-06 16:53] LABS: ALBUMIN 3.9 GM/DL (3.2-5.2); ALT/SGPT 63 U/L (12-78); BILIRUBIN,TOTAL 0.7 MG/DL (0.2-1.0); BLOOD UREA NITROGEN 16 MG/DL (7-18); CALCIUM LEVEL 9.4 MG/DL (8.8-10.2); CARBON DIOXIDE LEVEL 29 MEQ/L (21-32); CHLORIDE LEVEL 103 MEQ/L (98-107); CHOLESTEROL LEVEL 269 MG/DL (<200); CHOLESTEROL RISK RATIO 3.091 (<5); CREATININE FOR GFR 1.18 MG/DL (0.70-1.30); GLOMERULAR FILTRATION RATE > 60.0 (>49); GLUCOSE, FASTING 130 MG/DL (70-100); HDL CHOLESTEROL 87 MG/DL (>40); LDL CHOLESTEROL 147 MG/DL (<100); NON-HDL-C 182 MG/DL; POTASSIUM SERUM 4.1 MEQ/L (3.5-5.1); SODIUM LEVEL 140 MEQ/L (136-145); TRIGLYCERIDES LEVEL 175 MG/DL (<150)
[2018-08-06 17:02] LABS: HEMOGLOBIN A1c 6.1 %
== END ==
LOC: M LABDRWCV 16:14
PROVIDERS: ATTEND Family Medicine
DX: I10 Essential (primary) hypertension (principal); E78.5 Hyperlipidemia, unspecified; E11.9 Type 2 diabetes mellitus without complications; D64.9 Anemia, unspecified

== ENCOUNTER 2018-10-13 07:37 | Day surgery (SDC) | payer MEDICARE, OTHER ==
[~2018-10-13] VITALS: Ht 182.9 cm; Wt 116.5 kg
[~2018-10-13 07:37] MED LIST changes: -/CLON1TA; -/WARF25TA OR; -/WARF5TA OR; +ACETAMINOPHEN 1000MG 100ML IV BTL (OFIRMEV) (J0131 PER 10MG) As Ordered ONE; -BISO10TA PO; +BISO10TA13 PO; +CLON-412; +COUM1TAB17 OR; +COUM1TAB18 OR; +CRES10TA PO; -CRES10TA32 PO; -DILT120C82 PO; +DILT1CAP2 PO; +KETOROLAC 60 MG/2 ML VIAL (J1885) As Ordered ONE; +LEVOTAB10 PO; +LIDOCAINE 1% MDV 20ML VIAL SQ PRN; +LIDOCAINE 2% INJ 100 MG/5 ML SDV (FOR ANES.) As Ordered ONE; +LR 1,000 ML IV ONE; +LevoFLOXacin IV 500 MG in APPROPRIATE DILUENT 1 EA IV ONE; +MIDAZOLAM INJ 2 MG/2 ML VIAL (J2250) As Ordered ONE; +ONDANSETRON 4MG/2ML VIAL (J2405) As Ordered ONE; +PROPOFOL 200 MG/20 ML VIAL As Ordered ONE; +ROCURONIUM BROMIDE 50 MG/5 ML VIAL As Ordered ONE; +SUGAMMADEX SODIUM 500 MG/5 ML VIAL (BRIDION) As Ordered ONE; +dexameTHASONE 4 MG/ML 1ML VIAL (J1100) As Ordered ONE; +fentaNYL 100 MCG/2 ML INJECTION (J3010) As Ordered ONE
[2018-10-13] MEDS ORDERED: BUPIVACAINE HCL 0.25% 10 ML VIAL As Ordered ONE (09:22)
[2018-10-13] MEDS ORDERED: BUPIVACAINE LIPOSOME/PF 1.3% 20ML VIAL (13.3MG/ML)(EXPAREL)(C9290 PER1MG) As Ordered ONE (09:22)
[2018-10-13] MEDS ORDERED: fentaNYL 100 MCG/2 ML INJECTION (J3010) As Ordered ONE ×2 (10:08→10:32)
[2018-10-13] MEDS ORDERED: PERCOCET 5MG/325MG TAB As Ordered ONE ×2 (10:55→11:10)
[2018-10-13] MEDS: PERCOCET 5MG/325MG TAB PO PRN ×2 (10:55→11:25)
[2018-10-13] MEDS: MORPHINE 10 MG/ML 1ML VIAL (J2270) IV PRN ×5 (11:10→11:35)
[2018-10-13] MEDS ORDERED: MORPHINE 4 MG/ML 1ML VIAL/SYRINGE (J2270) As Ordered ONE (11:10)
[2018-10-13] MEDS ORDERED: ONDANSETRON 4MG/2ML VIAL (J2405) As Ordered ONE (11:10)
[2018-10-13] MEDS ORDERED: fentaNYL 100 MCG/2 ML INJECTION (J3010) IV PRN (11:15)
[2018-10-13] MEDS ORDERED: LR 1,000 ML IV SCH ×2 (11:15→11:30)
[2018-10-13] MEDS ORDERED: ONDANSETRON 4MG/2ML VIAL (J2405) IV PRN ×2 (11:15→11:30)
[2018-10-13] MEDS ORDERED: PERCOCET 5MG/325MG TAB PO PRN (11:30)
[2018-10-13 14:30] VITALS: BP 157/96
== END 2018-10-13 14:40 | disposition home or self-care (01) ==
LOC: M SDC 07:37
PROVIDERS: ATTEND Surgery
DX: K42.9 Umbilical hernia without obstruction or gangrene (principal); I48.91 Unspecified atrial fibrillation; I25.10 Atherosclerotic heart disease of native coronary artery without angina pectoris; I10 Essential (primary) hypertension; E11.9 Type 2 diabetes mellitus without complications; Z79.51 Long term (current) use of inhaled steroids; Z79.84 Long term (current) use of oral hypoglycemic drugs; E78.5 Hyperlipidemia, unspecified; Z88.0 Allergy status to penicillin; K44.9 Diaphragmatic hernia without obstruction or gangrene; Z79.899 Other long term (current) drug therapy
CPT/HCPCS: 49585; 88302; C1781; C9290; J0131; J1100; J1885; J1956; J2250; J2270; J2405; J3010